=== PATIENT | male | born 1950 | race African-American/Black ===

== ENCOUNTER 2017-01-27 11:08 | Emergency (ER) | payer SELFPAY ==
[2017-01-27 11:43] VITALS: TEMP 97.8; BMI 28.5
--- NOTE | 2017-01-27 12:54 | PDOC ---
History of Present Illness <Saulo Osborne - Last Filed: 01/27/17 13:21> - History of Present Illness Initial Comments: 01/27/17 12:53 Mr. Kerr is a 66 year old male with a significant past medical history of recent ER visit for left leg injury who presents to the emergency department following 2 episodes of painless dark blood in his stool. He says that it began last night and continued this morning. It is also on the toilet paper when he wipes. Denies any change in stool otherwise or any previous episodes. The patient denies chest pain, shortness of breath, headache and dizziness. Denies fever, chills, nausea, vomit, diarrhea and constipation. Denies dysuria, frequency, urgency and hematuria. Allergies: NKDA Past surgical history: Denies 01/27/17 13:40 <Blaise Baltazar - Last Filed: 01/27/17 15:34> - General Chief Complaint: Rectal Bleed Stated Complaint: LT LEG PAIN, SWOLLEN Time Seen by Provider: 01/27/17 12:53 Past History <Saulo Osborne - Last Filed: 01/27/17 13:21> - Past Medical History Disorders: Yes (Kidney stones) HTN: Yes - Immunization History Immunization Up to Date: Yes - Suicide/Smoking/Psychosocial Hx Smoking History: Never smoked Hx Alcohol Use: No Drug/Substance Use Hx: No Substance Use Type: None <Blaise Baltazar - Last Filed: 01/27/17 15:34> - Past Medical History Allergies/Adverse Reactions: Allergies Allergy/AdvReac Type Severity Reaction Status Date / Time No Known Allergies Allergy Verified 01/27/17 11:39 Home Medications: Ambulatory Orders Clonidine HCl [Catapres] 0.1 mg PO BID #60 tablet 11/12/15 Review of Systems - Review of Systems Comments:: 01/27/17 12:54 GENERAL/CONSTITUTIONAL: No fever or chills. No weakness. HEAD, EYES, EARS, NOSE AND THROAT: No change in vision. No ear pain or discharge. No sore throat. CARDIOVASCULAR: No chest pain or shortness of breath RESPIRATORY: No cough, wheezing, or hemoptysis. GASTROINTESTINAL: No nausea, vomiting, diarrhea or constipation. GENITOURINARY: No dysuria, frequency, or change in urination. MUSCULOSKELETAL: +Left leg pain from previous injury with swelling. No neck or back pain. SKIN: No rash NEUROLOGIC: No headache, vertigo, loss of consciousness, or change in strength/ sensation. ENDOCRINE: No increased thirst. No abnormal weight change HEMATOLOGIC/LYMPHATIC: No anemia, easy bleeding, or history of blood clots. ALLERGIC/IMMUNOLOGIC: No hives or skin allergy. <JerryrozBlaise schaefer - Last Filed: 01/27/17 15:34> *Physical Exam - Vital Signs Last Vital Signs Temp Pulse Resp BP Pulse Ox 97.8 F 76 20 150/93 100 01/27/17 11:39 01/27/17 11:39 01/27/17 11:39 01/27/17 11:39 01/27/17 11:39 <Saulo Osborne - Last Filed: 01/27/17 13:21> - Vital Signs Last Vital Signs Temp Pulse Resp BP Pulse Ox 97.8 F 76 20 150/93 100 01/27/17 11:39 01/27/17 11:39 01/27/17 11:39 01/27/17 11:39 01/27/17 11:39 - Physical Exam Comments: 01/27/17 12:54 GENERAL: Awake, alert, and fully oriented, in no acute distress HEAD: No signs of trauma, normocephalic, atraumatic EYES: PERRLA, EOMI, sclera anicteric, conjunctiva clear ENT: Auricles normal inspection, hearing grossly normal, nares patent, oropharynx clear without exudates. Moist mucosa NECK: Normal ROM, supple, no lymphadenopathy, JVD, or masses LUNGS: No distress, speaks full sentences, clear to auscultation bilaterally HEART: Regular rate and rhythm, normal S1 and S2, no murmurs, rubs or gallops, peripheral pulses normal and equal bilaterally. ABDOMEN: Soft, nontender, normoactive bowel sounds. No guarding, no rebound. No masses EXTREMITIES: +Left leg swelling with pain to palpation. Normal range of motion, no edema. No clubbing or cyanosis. NEUROLOGICAL: Cranial nerves II through XII grossly intact. Normal speech, normal gait, no focal sensorimotor deficits SKIN: Warm, Dry, normal turgor, no rashes or lesions noted. RECTAL: No hemmorhoids noted externally, internal hemmorhoid appreciated by palpation. No blood or deformities noted on exam. <Blaise Baltazar - Last Filed: 01/27/17 15:34> ED Treatment Course - LABORATORY CBC & Chemistry Diagram: 01/27/17 14:50 01/27/17 14:50 <TreysilvanoBlaise - Last Filed: 01/27/17 15:34> Medical Decision Making - Medical Decision Making 01/27/17 15:27 Patient had negative stool for occult blood and labs as below. Will d/c with instructions to follow-up outpatient w/ PCP Laboratory Results - last 24 hr 01/27/17 01/27/17 01/27/17 13:29 14:50 14:50 WBC 6.6 RBC 4.34 Hgb 12.9 Hct 39.3 MCV 90.5 MCH 29.7 MCHC 32.8 RDW 14.2 Plt Count 148 D MPV 7.8 Neutrophils % 55.6 Lymphocytes % 31.0 Monocytes % 9.0 Eosinophils % 3.9 Basophils % 0.5 Sodium 139 Potassium 4.2 Chloride 107 Carbon Dioxide 27 Anion Gap 5 L BUN 10 D Creatinine 0.8 Creat Clearance w eGFR > 60 Random Glucose 87 Calcium 9.0 Total Bilirubin 0.3 D AST 22 D ALT 28 D Alkaline Phosphatase 63 Total Protein 7.3 Albumin 4.0 Stool Occult Blood Negative <TreysilvanoBlaise - Last Filed: 01/27/17 15:34> *DC/Admit/Observation/Transfer - Attestations Physician Attestion: 01/27/17 13:22 I, Dr. Saulo Osborne, attest that this document has been prepared under my direction and personally reviewed by me in its entirety. I further attest, that it accurately reflects all work, treatment, procedures and medical decision -making performed by me. <Saulo Osborne - Last Filed: 01/27/17 13:21> <Blaise Baltazar - Last Filed: 01/27/17 15:34> Diagnosis at time of Disposition: Hemorrhoid Qualifiers: Hemorrhoid type: unspecified Qualified Code(s): K64.9 - Unspecified hemorrhoids - Discharge Dispostion Disposition: HOME - Referrals Referrals: Barrett Reid MD [Primary Care Provider] - - Patient Instructions Printed Discharge Instructions: DI for Rectal Bleeding, DI for Hemorrhoids Additional Instructions: Thank you for coming in today. Please follow-up with your provider for further care. Print Language: PANAMANIAN
--- NOTE | 2017-01-27 13:23 | PDOC ---
Attending Attestation - Resident Resident Name: Blaise Baltazar - ED Attending Attestation I have performed the following: I have examined & evaluated the patient, The case was reviewed & discussed with the resident, I agree w/resident's findings & plan, Exceptions are as noted - HPI HPI: 01/27/17 13:22 rectal bleeding - Physicial Exam PE: 01/27/17 13:23 no hemorrage at present VSS - Medical Decision Making 01/27/17 13:[address] Baltazar's Assessment and Plan
[2017-01-27 14:59] LABS: BASOPHIL 0.5 % (0-2.0); EOSINOPHIL 3.9 % (0-4.5); MCH 29.7 pg (25.7-33.7); MCHC 32.8 g/dl (32.0-35.9); MEAN CELL VOLUME 90.5 fl (80-96); MEAN PLT VOLUME 7.8 fl (7.5-11.1); NEUTROPHILS 55.6 % (42.8-82.8); PLATELET COUNT 148 K/MM3 (134-434); RDW 14.2 % (11.9-15.9); WHITE BLOOD COUNT 6.6 K/mm3 (4.0-10.0)
[2017-01-27 15:24] LABS: ANION GAP 5 (8-16); BILIRUBIN,TOTAL 0.3 mg/dL (0.2-1.0); CO2 27 mmol/L (21-32); CREATININE 0.8 mg/dL (0.7-1.3); GLUCOSE,RANDOM 87 mg/dL (74-106); SGOT/AST 22 U/L (15-37); SGPT/ALT 28 U/L (12-78); TOT PROT 7.3 g/dl (6.4-8.2)
[2017-01-27 15:25] LABS: ALK PHOS 63 U/L (45-117)
[2017-01-27 16:14] VITALS: BP 188/109; PULSE 72
== END 2017-01-27 16:16 | disposition home or self-care (01) ==
LOC: JER 11:08
DX: K64.9 Unspecified hemorrhoids (principal)
CPT/HCPCS: 36415; 80053; 82272; 85025; 99282-25

== ENCOUNTER 2017-01-29 09:43 | Inpatient (IN) | payer OTHER ==
[2017-01-29 09:48] VITALS: BMI 28.5
--- NOTE | 2017-01-29 10:16 | PDOC ---
History of Present Illness - General History Source: Patient Exam Limitations: No Limitations - History of Present Illness Initial Comments: 01/29/17 12:19 The patient is a 66 year old male with a significant PMH of HTN and recent ER visit for rectal bleeding who presents to the emergency department with LLE swelling beginning approximately 4 days ago. He also reports 2 days of associated weakness and reduced appetite. The patient reports twisting his ankle 6 months ago at work but continuing to work for 2 months after.The patient has noticed LLE swelling in the past but notes that it has gotten much worse within the past 4 days and encompasses his entire leg. The patient frequently visits Dr. Lutz from podiatry for treatment, and was told by him to visit the ED given his worsening pain and edema over the last 4 days. The patient denies chest pain, shortness of breath, headache and dizziness. Denies fever, chills, nausea, vomit, diarrhea and constipation. Denies dysuria, frequency, urgency and hematuria. Allergies: NKA Social history: No reported cigarette, alcohol, or drug use. PCP: Dr. Reid Retail Account Specialist: Dr. Lutz (Referred pt. to ED) <Manjinder Hahn - Last Filed: 01/29/17 14:28> <Kourtney Rico - Last Filed: 01/29/17 15:26> - General Chief Complaint: Edema Stated Complaint: LEG PAIN Time Seen by Provider: 01/29/17 10:15 Past History <Manjinder Hahn - Last Filed: 01/29/17 14:28> - Past Medical History Disorders: Yes (Kidney stones) HTN: Yes - Immunization History Immunization Up to Date: Yes - Suicide/Smoking/Psychosocial Hx Smoking History: Never smoked Hx Alcohol Use: No Drug/Substance Use Hx: No Substance Use Type: None <Kourtney Rico - Last Filed: 01/29/17 15:26> - Past Medical History Allergies/Adverse Reactions: Allergies Allergy/AdvReac Type Severity Reaction Status Date / Time No Known Allergies Allergy Verified 01/29/17 09:48 Home Medications: Ambulatory Orders Clonidine HCl [Catapres] 0.1 mg PO BID #60 tablet 11/12/15 Review of Systems - Review of Systems Able to Perform ROS?: Yes Comments:: 01/29/17 12:19 GENERAL/CONSTITUTIONAL: (+) Mild weakness. No fever or chills. HEAD, EYES, EARS, NOSE AND THROAT: No change in vision. No ear pain or discharge. No sore throat. CARDIOVASCULAR: No chest pain or shortness of breath. RESPIRATORY: No cough, wheezing, or hemoptysis. GASTROINTESTINAL: (+) Reduced appetite. No nausea, vomiting, diarrhea or constipation. GENITOURINARY: No dysuria, frequency, or change in urination. MUSCULOSKELETAL: (+) LLE swelling. No joint pain. No neck or back pain. SKIN: No rash NEUROLOGIC: No headache, vertigo, loss of consciousness, or change in strength/ sensation. ENDOCRINE: No increased thirst. No abnormal weight change. HEMATOLOGIC/LYMPHATIC: No anemia, easy bleeding, or history of blood clots. ALLERGIC/IMMUNOLOGIC: No hives or skin allergy. <Manjinder Hahn - Last Filed: 01/29/17 14:28> *Physical Exam - Vital Signs Last Vital Signs Temp Pulse Resp BP Pulse Ox 98.5 F 105 H 20 144/104 100 01/29/17 09:44 01/29/17 09:44 01/29/17 09:44 01/29/17 09:44 01/29/17 09:44 - Physical Exam Comments: 01/29/17 12:19 GENERAL: Awake, alert, and fully oriented, in no acute distress HEAD: No signs of trauma EYES: PERRLA, EOMI, sclera anicteric, conjunctiva clear ENT: Auricles normal inspection, hearing grossly normal, nares patent, oropharynx clear without exudates. Moist mucosa NECK: Normal ROM, supple, no lymphadenopathy, JVD, or masses LUNGS: Breath sounds equal, clear to auscultation bilaterally. No wheezes, and no crackles HEART: Regular rate and rhythm, normal S1 and S2, no murmurs, rubs or gallops ABDOMEN: Soft, nontender, normoactive bowel sounds. No guarding, no rebound. No masses EXTREMITIES: (+) LLE edema and erythema. Normal range of motion. No clubbing or cyanosis. No cords or tenderness BACK: No midline spinal tenderness in cervical/thoracic/lumbar region NEUROLOGICAL: Normal speech, cranial nerves intact, negative pronator drift, 5/ 5 strength in all 4 extremities, normal sensation to light touch in all 4 extremities, normal cerebellar exam, normal gait, normal reflexes and tone. SKIN: Warm, Dry, normal turgor, no rashes or lesions noted. <Manjinder Hahn - Last Filed: 01/29/17 14:28> - Vital Signs Last Vital Signs Temp Pulse Resp BP Pulse Ox 98.5 F 105 H 20 144/104 100 01/29/17 09:44 01/29/17 09:44 01/29/17 09:44 01/29/17 09:44 01/29/17 09:44 <Kourtney Rico - Last Filed: 01/29/17 15:26> ED Treatment Course - LABORATORY CBC & Chemistry Diagram: 01/29/17 12:55 01/29/17 12:55 - RADIOLOGY Radiograph Interpretation: 01/29/17 14:28 Exam: Chest XR Interpreted by Dr. Goel Impression: No acute disease. Exam: Duplex Scan of lower extremity arteries Interpreted by Dr. Goel Impression: Normal duplex arterial study of the left lower extremity with no evidence of occlusions or hemodynamically significant stenoses. <Manjinder Hahn - Last Filed: 01/29/17 14:28> - LABORATORY CBC & Chemistry Diagram: 01/29/17 12:55 01/29/17 12:55 <Kourtney Rico - Last Filed: 01/29/17 15:26> Medical Decision Making - Medical Decision Making 01/29/17 12:11 66-year-old male history of hypertension and ankle injury 6 months ago presents with progressive left lower extremity edema, erythema and pain. The patient also reports anorexia and generalized weakness. Exam with edema to the entire left lower extremity with erythema about the calf and tenderness to palpation throughout. Concern for DVT with superimposed cellulitis. Plan: -labs -US arterial and venous -reassess 01/29/17 14:16 LLE venous US with large DVT. Dr. Juarez on vacation, pt admitted to medicine for further management. CTA pending. Case discussed in detail with admitting physician Dr. Chand including history, physical exam and ancillary studies. Admitting physician has assumed care for the patient, will follow all pending diagnostics and will complete the evaluation and treatment. <Kourtney Rico - Last Filed: 01/29/17 15:26> *DC/Admit/Observation/Transfer - Attestations Scribe Attestion: 01/29/17 11:05 Documentation prepared by Manjinder Hahn, acting as medical billing coder for Kourtney Rico MD. <Manjinder Hahn - Last Filed: 01/29/17 14:28> - Discharge Dispostion Admit: Yes - Attestations Physician Attestion: 01/29/17 14:24 I, Dr. Kourtney Rico MD, attest that this document has been prepared under my direction and personally reviewed by me in its entirety. I further attest, that it accurately reflects all work, treatment, procedures and medical decision -making performed by me. <Kourtney Rico - Last Filed: 01/29/17 15:26> Diagnosis at time of Disposition: DVT (deep venous thrombosis) - Discharge Dispostion Condition at time of disposition: Stable
[2017-01-29 13:04] LABS: BASOPHIL 0.8 % (0-2.0); EOSINOPHIL 4.2 % (0-4.5); MCH 29.9 pg (25.7-33.7); MEAN CELL VOLUME 90.5 fl (80-96); NEUTROPHILS 56.5 % (42.8-82.8); PLATELET COUNT 150 K/MM3 (134-434); RDW 14.2 % (11.9-15.9); WHITE BLOOD COUNT 6.3 K/mm3 (4.0-10.0)
[2017-01-29 13:29] LABS: ALBUMIN 3.9 g/dl (3.4-5.0); ALK PHOS 67 U/L (45-117); ANION GAP 8 (8-16); BILIRUBIN,TOTAL 0.6 mg/dL (0.2-1.0); CALCIUM 8.9 mg/dL (8.5-10.1); CO2 27 mmol/L (21-32); CREATININE 0.9 mg/dL (0.7-1.3); GLUCOSE,RANDOM 67 mg/dL (74-106); MAGNESIUM 2.2 mg/dL (1.8-2.4); SGOT/AST 21 U/L (15-37); SGPT/ALT 24 U/L (12-78); TOT PROT 7.2 g/dl (6.4-8.2)
--- NOTE | 2017-01-29 17:24 | PN ---
Teaching Attending Note Name of Resident: Pop Buckner ATTENDING PHYSICIAN STATEMENT I saw and evaluated the patient. I reviewed the resident's note and discussed the case with the resident. I agree with the resident's findings and plan as documented. SUBJECTIVE: Patient is c/o having pain and increase te size of right lower extremity OBJECTIVE: Vital Signs Temperature 98.5 F 01/29/17 09:44 Pulse Rate 105 H 01/29/17 09:44 Respiratory Rate 20 01/29/17 09:44 Blood Pressure 144/104 01/29/17 09:44 O2 Sat by Pulse Oximetry (%) 100 01/29/17 09:44 CBCD WBC 6.3 K/mm3 (4.0-10.0) 01/29/17 12:55 RBC 4.38 M/mm3 (4.00-5.60) 01/29/17 12:55 Hgb 13.1 GM/dL (11.7-16.9) 01/29/17 12:55 Hct 39.7 % (35.4-49) 01/29/17 12:55 MCV 90.5 fl (80-96) 01/29/17 12:55 MCHC 33.0 g/dl (32.0-35.9) 01/29/17 12:55 RDW 14.2 % (11.9-15.9) 01/29/17 12:55 Plt Count 150 K/MM3 (134-434) 01/29/17 12:55 MPV 8.0 fl (7.5-11.1) 01/29/17 12:55 CMP Sodium 139 mmol/L (136-145) 01/29/17 12:55 Potassium 4.1 mmol/L (3.5-5.1) 01/29/17 12:55 Chloride 104 mmol/L (98-107) 01/29/17 12:55 Carbon Dioxide 27 mmol/L (21-32) 01/29/17 12:55 Anion Gap 8 (8-16) 01/29/17 12:55 BUN 11 mg/dL (7-18) 01/29/17 12:55 Creatinine 0.9 mg/dL (0.7-1.3) 01/29/17 12:55 Creat Clearance w eGFR > 60 (>60) 01/29/17 12:55 Random Glucose 67 mg/dL (74-106) L D 01/29/17 12:55 Calcium 8.9 mg/dL (8.5-10.1) 01/29/17 12:55 Total Bilirubin 0.6 mg/dL (0.2-1.0) D 01/29/17 12:55 AST 21 U/L (15-37) 01/29/17 12:55 ALT 24 U/L (12-78) 01/29/17 12:55 Alkaline Phosphatase 67 U/L (45-117) 01/29/17 12:55 Total Protein 7.2 g/dl (6.4-8.2) 01/29/17 12:55 Albumin 3.9 g/dl (3.4-5.0) 01/29/17 12:55 Current Medications Generic Name Dose Route Start Last Admin Trade Name Freq PRN Reason Stop Dose Admin Enoxaparin Sodium 90 mg 01/29/17 22:00 Lovenox - SQ BID STEPHAN Home Medications Medication Instructions Recorded Clonidine HCl [Catapres] 0.1 mg PO BID #60 tablet 11/12/15 PE: CVs: Tachcardia mild, positive for S1S2 RLE: 4x larger than LLL rest of PE per resident' notes ASSESSMENT AND PLAN: Patient is a 66 year old male with a past medical history of hypertension, presents to the emergency room with c/o increased left lower extremity swelling for the past five days. # Acute extensive DVT of RLE on Lovenox 90mg bid for now, IR for consult for possible thrombectomy in am and IVC filter prior to thrombectomy # Acute PE on Lovenox continue for now DVT Px: Lovenox
--- NOTE | 2017-01-29 18:16 | PN ---
Physical Exam: SUBJECTIVE: Patient seen and examined OBJECTIVE: Vital Signs Period Temp Pulse Resp BP Sys/Luna Pulse Ox Last 24 Hr 98.5 F 86 18 150/90 98 GENERAL: The patient is awake, alert, and fully oriented, in no acute distress. HEAD: Normal with no signs of trauma. EYES: PERRL, extraocular movements intact, sclera anicteric, conjunctiva clear. No ptosis. ENT: Ears normal, nares patent, oropharynx clear without exudates, moist mucous membranes. NECK: Trachea midline, full range of motion, supple. LUNGS: Breath sounds equal, clear to auscultation bilaterally, no wheezes, no crackles, no accessory muscle use. HEART: Regular rate and rhythm, S1, S2 without murmur, rub or gallop. ABDOMEN: Soft, nontender, nondistended, normoactive bowel sounds, no guarding, no rebound, no hepatosplenomegaly, no masses. EXTREMITIES: 2+ pulses, warm, well-perfused, no edema. NEUROLOGICAL: Cranial nerves II through XII grossly intact. Normal speech, gait not observed. PSYCH: Normal mood, normal affect. SKIN: Warm, dry, normal turgor, no rashes or lesions noted Active Medications Generic Name Dose Route Start Last Admin Trade Name Freq PRN Reason Stop Dose Admin Enoxaparin Sodium 90 mg 01/29/17 22:00 Lovenox - SQ BID [facility] ASSESSMENT/PLAN:
--- NOTE | 2017-01-29 20:01 | HP ---
CHIEF COMPLAINT: LE swelling PCP: HISTORY OF PRESENT ILLNESS: 66 year old male with a past medical history of hypertension, presents to the emergency room with c/o increased left lower extremity swelling for the past five days. Swelling is accompanied with erythema and pain. Patient states that five months ago he tore ligaments in his left ankle due to and injury at work. Since then he has been less mobile due to pain. Patient denies sob, chest pain. ER course was notable for: (1)Extensive left lower extremity DVT (2)CTA showing multiple small bilateral pulmonary emboli; (3)pelvic CT showing external and common femoral vein Recent Travel: unknown PAST MEDICAL HISTORY: HTN PAST SURGICAL HISTORY: Social History: Smoking:no Alcohol:no Drugs: no Family History: Allergies No Known Allergies Allergy (Verified 01/29/17 09:48) HOME MEDICATIONS: Home Medications Medication Instructions Recorded Clonidine HCl [Catapres] 0.1 mg PO BID #60 tablet 11/12/15 REVIEW OF SYSTEMS CONSTITUTIONAL: Absent: fever, chills, diaphoresis, generalized weakness, malaise, loss of appetite, weight change HEENT: Absent: rhinorrhea, nasal congestion, throat pain, throat swelling, difficulty swallowing, mouth swelling, ear pain, eye pain, visual changes CARDIOVASCULAR: Absent: chest pain, syncope, palpitations, irregular heart rate, lightheadedness , peripheral edema RESPIRATORY: Absent: cough, shortness of breath, dyspnea with exertion, orthopnea, wheezing, stridor, hemoptysis GASTROINTESTINAL: Absent: abdominal pain, abdominal distension, nausea, vomiting, diarrhea, constipation, melena, hematochezia GENITOURINARY: Absent: dysuria, frequency, urgency, hesitancy, hematuria, flank pain, genital pain MUSCULOSKELETAL: Positive: left ankle pain Absent: myalgia, arthralgia, joint swelling, back pain, neck pain SKIN: Absent: rash, itching, pallor HEMATOLOGIC/IMMUNOLOGIC: Absent: easy bleeding, easy bruising, lymphadenopathy, frequent infections ENDOCRINE: Absent: unexplained weight gain, unexplained weight loss, heat intolerance, cold intolerance NEUROLOGIC: Absent: headache, focal weakness or paresthesias, dizziness, unsteady gait, seizure, mental status changes, bladder or bowel incontinence PSYCHIATRIC: Absent: anxiety, depression, suicidal or homicidal ideation, hallucinations. PHYSICAL EXAMINATION Vital Signs - 24 hr 01/29/17 18:00 Temperature 98.5 F Pulse Rate [ 86 Apical] Respiratory 18 Rate Blood Pressure 150/90 [Left Arm] O2 Sat by Pulse 98 Oximetry (%) GENERAL: Awake, alert, and fully oriented, in no acute distress. HEAD: Normal with no signs of trauma. EYES: Pupils equal, round and reactive to light, extraocular movements intact, sclera anicteric, conjunctiva clear. No lid lag. EARS, NOSE, THROAT: Ears normal, nares patent, oropharynx clear without exudates. Moist mucous membranes. NECK: Normal range of motion, supple without lymphadenopathy, JVD, or masses. LUNGS: Breath sounds equal, clear to auscultation bilaterally. No wheezes, and no crackles. No accessory muscle use. HEART: tachycardic and rhythm, normal S1 and S2 without murmur, rub or gallop. ABDOMEN: Soft, nontender, not distended, normoactive bowel sounds, no guarding, no rebound, no masses. No hepatomegaly or splenomegaly. MUSCULOSKELETAL: Normal range of motion at all joints. No bony deformities or tenderness. No CVA tenderness. UPPER EXTREMITIES: 2+ pulses, warm, well-perfused. No cyanosis. No clubbing. No peripheral edema. LOWER EXTREMITIES: 2+ pulses, warm, well-perfused. Extensive left lower extremity swelling extending to thigh with erythema NEUROLOGICAL: Cranial nerves II-XII intact. Normal speech. Normal gait. PSYCHIATRIC: Cooperative. Good eye contact. Appropriate mood and affect. SKIN: Warm, dry, normal turgor, no rashes or lesions noted, normal capillary refill. ASSESSMENT/PLAN: 66 year old male with hypertension presents to the ER after 5 days of LLL swelling and erythema found to have extensive DVT with multiple small bilateral PE's. #LLE DVT with small bilateral PE; -start full dose lovenox; as per weight she narendra get 90mg sq bid -consult IR #hypertension: -cont amlodipine Visit type - Emergency Visit Emergency Visit: Yes ED Registration Date: 01/29/17 Care time: The patient presented to the Emergency Department on the above date and was hospitalized for further evaluation of their emergent condition. - New Patient This patient is new to me today: Yes Date on this admission: 01/29/17 - Critical Care Critical Care patient: No
--- NOTE | 2017-01-29 20:41 | HP ---
CHIEF COMPLAINT: LLE Leg pain PCP: Patient is a 66 y with a Pmh of HTN, presented with 9/10 LLE gómez and calf pain, redness and swelling that began 5 days ago. Patient said he had ankle pain and swelling for the past 6 months since his injury at work which tore his left ankle ligaments. He said an 800 pound Copper item fell on his left foot. He has followed up multiple times regarding his ankle pain and was given Ibuprofen. He said he barely takes the Ibuprofen as it never helped. The pain progressively got worse and 5 days ago the pain spread from the ankles up to his thigh. He denies SOB, chest pain, fever, chills and cough. HISTORY OF PRESENT ILLNESS: ER course was notable for: (1)Extensive left lower extremity DVT (2)CTA showing multiple small bilateral pulmonary emboli; (3)pelvic CT showing external and common femoral vein Recent Travel: N/A PAST MEDICAL HISTORY: HTN PAST SURGICAL HISTORY: N/A Social History: Smoking:denies Alcohol: denies Drugs: denies Family History: Allergies No Known Allergies Allergy (Verified 01/29/17 09:48) HOME MEDICATIONS: Home Medications Medication Instructions Recorded Clonidine HCl [Catapres] 0.1 mg PO BID #60 tablet 11/12/15 REVIEW OF SYSTEMS CONSTITUTIONAL: Absent: fever, chills, diaphoresis, generalized weakness, malaise, loss of appetite, weight change HEENT: Absent: rhinorrhea, nasal congestion, throat pain, throat swelling, difficulty swallowing, mouth swelling, ear pain, eye pain, visual changes CARDIOVASCULAR: Absent: chest pain, syncope, palpitations, irregular heart rate, lightheadedness , peripheral edema RESPIRATORY: Absent: cough, shortness of breath, dyspnea with exertion, orthopnea, wheezing, stridor, hemoptysis GASTROINTESTINAL: Absent: abdominal pain, abdominal distension, nausea, vomiting, diarrhea, constipation, melena, hematochezia GENITOURINARY: Absent: dysuria, frequency, urgency, hesitancy, hematuria, flank pain, genital pain MUSCULOSKELETAL: Absent: myalgia, arthralgia, joint swelling, back pain, neck pain SKIN: LLE gómez redness and swelling Absent: rash, itching, pallor HEMATOLOGIC/IMMUNOLOGIC: Absent: easy bleeding, easy bruising, lymphadenopathy, frequent infections ENDOCRINE: Absent: unexplained weight gain, unexplained weight loss, heat intolerance, cold intolerance NEUROLOGIC: Absent: headache, focal weakness or paresthesias, dizziness, unsteady gait, seizure, mental status changes, bladder or bowel incontinence PSYCHIATRIC: Absent: anxiety, depression, suicidal or homicidal ideation, hallucinations. PHYSICAL EXAMINATION Vital Signs - 24 hr 01/29/17 18:00 Temperature 98.5 F Pulse Rate [ 86 Apical] Respiratory 18 Rate Blood Pressure 150/90 [Left Arm] O2 Sat by Pulse 98 Oximetry (%) GENERAL: Awake, alert, and fully oriented, in no acute distress. HEAD: Normal with no signs of trauma. EYES: Pupils equal, round and reactive to light, extraocular movements intact, sclera anicteric, conjunctiva clear. No lid lag. EARS, NOSE, THROAT: oropharynx clear without exudates. Moist mucous membranes. NECK: supple without lymphadenopathy, JVD, or masses. LUNGS: Breath sounds equal, clear to auscultation bilaterally. No wheezes, and no crackles. HEART: tachy, normal S1 and S2 without murmur, rub or gallop. ABDOMEN: Soft, nontender, not distended, normoactive bowel sounds, no guarding, no rebound, no masses. No hepatomegaly or splenomegaly. MUSCULOSKELETAL: Normal range of motion at all joints. No bony deformities or tenderness. No CVA tenderness. UPPER EXTREMITIES: 2+ pulses, warm, well-perfused. No cyanosis. No clubbing. No peripheral edema. LOWER EXTREMITIES: LLE : tenderness to palpation, Extensive swelling and erythema that extends to left thigh. 1+ pitting edema NEUROLOGICAL: Cranial nerves II-XII intact. Normal speech. Normal gait. PSYCHIATRIC: Cooperative. Good eye contact. Appropriate mood and affect. SKIN: Warm, dry, normal turgor, no rashes or lesions noted, normal capillary refill. ASSESSMENT/PLAN: 66 year old male with hypertension presents to the ER after 5 days of LLL swelling and erythema found to have extensive DVT with multiple small bilateral PE's. #LLE DVT with small B/L PE: -CTA showing multiple small bilateral pulmonary emboli -pelvic CT showing dvt involving external and common femoral vein -started Lovenox 90mg BID adjusted to weight -IR consulted -Will FU #Hypertension -continue Amlodipine 5mg FEN: -Not on any fluids -Electrolytes WNL -Regular Diet Visit type - Emergency Visit Emergency Visit: Yes ED Registration Date: 01/29/17 Care time: The patient presented to the Emergency Department on the above date and was hospitalized for further evaluation of their emergent condition. - New Patient This patient is new to me today: Yes Date on this admission: 01/30/17 - Critical Care Critical Care patient: No
[2017-01-29] MEDS: ENOXAPARIN NA (PORCINE) 100 MG/1 ML DISP.SYRIN SQ SCH (22:40)
[2017-01-30 07:15] LABS: MCH 29.9 pg (25.7-33.7); MCHC 33.2 g/dl (32.0-35.9); MEAN PLT VOLUME 7.7 fl (7.5-11.1); PLATELET COUNT 153 K/MM3 (134-434); RDW 13.7 % (11.9-15.9); WHITE BLOOD COUNT 5.9 K/mm3 (4.0-10.0)
[2017-01-30 07:24] LABS: INR 1.24 (0.82-1.09); PROTHROMBIN TIME (PATIENT) 13.7 SEC (9.98-11.88)
[2017-01-30 08:12] LABS: ANION GAP 11 (8-16); CALCIUM 8.8 mg/dL (8.5-10.1); CO2 24 mmol/L (21-32); CREATININE 0.9 mg/dL (0.7-1.3); GLUCOSE,RANDOM 80 mg/dL (74-106)
[2017-01-30] MEDS: ENOXAPARIN NA (PORCINE) 100 MG/1 ML DISP.SYRIN SQ SCH ×2 (09:32→21:49)
[2017-01-30] MEDS: amLODIPine BESYLATE 5 MG TABLET (FP) PO SCH (09:32)
[2017-01-30] MEDS ORDERED: FLU VACCINE QUAD 60 MCG/0.5 ML (MDV 17-18) IM ONE (10:00)
--- NOTE | 2017-01-30 10:44 | EKG ---
Test Reason : Blood Pressure : / mmHG Vent. Rate : 065 BPM Atrial Rate : 065 BPM P-R Int : 168 ms QRS Dur : 086 ms QT Int : 410 ms P-R-T Axes : 055 013 014 degrees QTc Int : 426 ms NORMAL SINUS RHYTHM MINIMAL VOLTAGE CRITERIA FOR LVH, MAY BE NORMAL VARIANT BORDERLINE ECG WHEN COMPARED WITH ECG OF 12-NOV-2015 14:44, NO SIGNIFICANT CHANGE WAS FOUND Confirmed by TRE URIBE, BORIS ([id number]) on 01/30/2017 10:43:48 AM Referred By: Confirmed By:BORIS TOLEDO MD
--- NOTE | 2017-01-30 12:22 | PN ---
Physical Exam: SUBJECTIVE: Patient seen and examined. No acute events overnight. He offers no new complaints today. Says the pain is almost gone and noticed a decrease in swelling. OBJECTIVE: Vital Signs Period Temp Pulse Resp BP Sys/Luna Pulse Ox Last 24 Hr 97.8 F-98.5 F 71-86 16-20 125-161/79-96 98-100 GENERAL: Awake, alert, and fully oriented, in no acute distress. HEAD: Normal with no signs of trauma. EYES: Pupils equal, round and reactive to light, extraocular movements intact, sclera anicteric, conjunctiva clear. No lid lag. EARS, NOSE, THROAT: oropharynx clear without exudates. Moist mucous membranes. NECK: supple without lymphadenopathy, JVD, or masses. LUNGS: Breath sounds equal, clear to auscultation bilaterally. No wheezes, and no crackles. HEART: tachy, normal S1 and S2 without murmur, rub or gallop. ABDOMEN: Soft, nontender, not distended, normoactive bowel sounds, no guarding, no rebound, no masses. No hepatomegaly or splenomegaly. MUSCULOSKELETAL: Normal range of motion at all joints. No bony deformities or tenderness. No CVA tenderness. UPPER EXTREMITIES: 2+ pulses, warm, well-perfused. No cyanosis. No clubbing. No peripheral edema. LOWER EXTREMITIES: LLE : tenderness to deep palpation (2/10. better than yesterday), Extensive swelling and erythema that extends to left thigh(improving ). 1+ pitting edema NEUROLOGICAL: Cranial nerves II-XII intact. Normal speech. Normal gait. PSYCHIATRIC: Cooperative. Good eye contact. Appropriate mood and affect. SKIN: Warm, dry, normal turgor, no rashes or lesions noted, normal capillary refill. Laboratory Results - last 24 hr 01/30/17 01/30/17 01/30/17 05:35 05:35 05:35 WBC 5.9 RBC 4.32 Hgb 12.9 Hct 38.9 MCV 90.0 MCH 29.9 MCHC 33.2 RDW 13.7 Plt Count 153 MPV 7.7 PT with INR 13.70 H INR 1.24 H Sodium 139 Potassium 3.9 Chloride 104 Carbon Dioxide 24 Anion Gap 11 BUN 15 D Creatinine 0.9 Random Glucose 80 Calcium 8.8 Active Medications Generic Name Dose Route Start Last Admin Trade Name Freq PRN Reason Stop Dose Admin Amlodipine Besylate 5 mg 01/30/17 10:00 01/30/17 09:32 Norvasc - PO 5 mg DAILY STEPHAN Administration Enoxaparin Sodium 90 mg 01/29/17 22:00 01/30/17 09:32 Lovenox - SQ 90 mg BID STEPHAN Administration ASSESSMENT/PLAN: 66 year old male with hypertension presents to the ER after 5 days of LLL swelling and erythema found to have extensive DVT with multiple small bilateral PE's. #LLE DVT with small B/L PE: -CTA showing multiple small bilateral pulmonary emboli -pelvic CT showing dvt involving external and common femoral vein -continue Lovenox 90mg BID adjusted to weight -IR consulted- will likely be scheduled for IVC filter and thrombectomy tomorrow. Talked to the patient about it and he agreed. -Will FU #Hypertension -continue Amlodipine 5mg FEN: -Not on any fluids -Electrolytes WNL -Regular Diet Visit type - Emergency Visit Emergency Visit: Yes ED Registration Date: 01/29/17 Care time: The patient presented to the Emergency Department on the above date and was hospitalized for further evaluation of their emergent condition. - New Patient This patient is new to me today: No - Critical Care Critical Care patient: No
--- NOTE | 2017-01-30 19:30 | PN ---
Teaching Attending Note Name of Resident: Pop Buckner ATTENDING PHYSICIAN STATEMENT I saw and evaluated the patient. I reviewed the resident's note and discussed the case with the resident. I agree with the resident's findings and plan as documented. SUBJECTIVE: Patient is very happy that the medication is helping his LLE swelling OBJECTIVE: Vital Signs Temperature 98.0 F 01/30/17 18:00 Pulse Rate 76 01/30/17 18:00 Respiratory Rate 19 01/30/17 18:00 Blood Pressure 155/101 01/30/17 18:00 O2 Sat by Pulse Oximetry (%) 100 01/30/17 09:00 CBCD WBC 5.9 K/mm3 (4.0-10.0) 01/30/17 05:35 RBC 4.32 M/mm3 (4.00-5.60) 01/30/17 05:35 Hgb 12.9 GM/dL (11.7-16.9) 01/30/17 05:35 Hct 38.9 % (35.4-49) 01/30/17 05:35 MCV 90.0 fl (80-96) 01/30/17 05:35 MCHC 33.2 g/dl (32.0-35.9) 01/30/17 05:35 RDW 13.7 % (11.9-15.9) 01/30/17 05:35 Plt Count 153 K/MM3 (134-434) 01/30/17 05:35 MPV 7.7 fl (7.5-11.1) 01/30/17 05:35 CMP Sodium 139 mmol/L (136-145) 01/30/17 05:35 Potassium 3.9 mmol/L (3.5-5.1) 01/30/17 05:35 Chloride 104 mmol/L (98-107) 01/30/17 05:35 Carbon Dioxide 24 mmol/L (21-32) 01/30/17 05:35 Anion Gap 11 (8-16) 01/30/17 05:35 BUN 15 mg/dL (7-18) D 01/30/17 05:35 Creatinine 0.9 mg/dL (0.7-1.3) 01/30/17 05:35 Creat Clearance w eGFR > 60 (>60) 01/29/17 12:55 Random Glucose 80 mg/dL (74-106) 01/30/17 05:35 Calcium 8.8 mg/dL (8.5-10.1) 01/30/17 05:35 Total Bilirubin 0.6 mg/dL (0.2-1.0) D 01/29/17 12:55 AST 21 U/L (15-37) 01/29/17 12:55 ALT 24 U/L (12-78) 01/29/17 12:55 Alkaline Phosphatase 67 U/L (45-117) 01/29/17 12:55 Total Protein 7.2 g/dl (6.4-8.2) 01/29/17 12:55 Albumin 3.9 g/dl (3.4-5.0) 01/29/17 12:55 Current Medications Generic Name Dose Route Start Last Admin Trade Name Freq PRN Reason Stop Dose Admin Amlodipine Besylate 5 mg 01/30/17 10:00 01/30/17 09:32 Norvasc - PO 5 mg DAILY STEPHAN Administration Enoxaparin Sodium 90 mg 01/29/17 22:00 01/30/17 09:32 Lovenox - SQ 90 mg BID STEPHAN Administration Home Medications Medication Instructions Recorded Amlodipine Besylate 5 mg PO ACHS 01/29/17 ASSESSMENT AND PLAN: Patient is a 66 year old male with a past medical history of hypertension, presents to the emergency room with c/o increased left lower extremity swelling for the past five days. # Acute extensive DVT of RLE on Lovenox 90mg bid for now, Patient is going to IR for thrombectomy in am and IVC filter prior to thrombectomy in am. # Acute PE on Lovenox continue for now DVT Px: Lovenox
[2017-01-31] MEDS: ENOXAPARIN NA (PORCINE) 100 MG/1 ML DISP.SYRIN SQ SCH ×2 (09:30→21:44)
[2017-01-31] MEDS: amLODIPine BESYLATE 5 MG TABLET (FP) PO SCH ×2 (09:30→16:07)
[2017-01-31] MEDS ORDERED: ALTEPLASE 2 MG VIAL IVPB ONE (11:30)
[2017-01-31] MEDS ORDERED: LABETALOL HCL 5 MG/1 ML (100MG/20 ML VIAL) IVPUSH ONE ×2 (12:07→14:14)
[2017-01-31] MEDS ORDERED: MIDAZOLAM HCL 5 MG/5 ML - 5 ML VIAL IVPUSH ONE ×3 (12:30→14:25)
--- NOTE | 2017-01-31 13:46 | CONSULT ---
Consultation: REQUESTING PROVIDER: Dr. Watson CONSULT REQUEST: Pulmonary We have been asked to medically evaluate this patient for DVT, PE. HISTORY OF PRESENT ILLNESS: 66 y/o M with PMH of HTN, who presented to ED with increased LLE swelling five days prior to admission. Pt twisted his L ankle at work 6 months ago. Ever since , he has had increased ankle pain and swelling, without much relief provided by ibuprofen. His pain worsened, spreading from his ankle into his thigh at the time of admission. At the time, pt denied hemoptysis, fever, chills, cough, or N /V. While in the ED, pt had duplex of LLE that showed extensive DVT, CTA which showed small, multiple b/l PE, CT abdomen/pelvis which showed DVT in L external iliac and common femoral vein. ECHO- couldn't rule out wall motion abnormalities. Pt was started on Lovenox 90mg BID. IR was consulted. Today, pt for IVC placement and thrombectomy, currently in progress. REVIEW OF SYSTEMS: CONSTITUTIONAL: Absent: fever, chills, diaphoresis, generalized weakness, malaise, loss of appetite, weight change HEENT: Absent: rhinorrhea, nasal congestion, throat pain, throat swelling, difficulty swallowing, mouth swelling, ear pain, eye pain, visual changes CARDIOVASCULAR: Absent: chest pain, syncope, palpitations, irregular heart rate, lightheadedness , peripheral edema RESPIRATORY: Absent: cough, shortness of breath, dyspnea with exertion, orthopnea, wheezing, stridor, hemoptysis GASTROINTESTINAL: Absent: abdominal pain, abdominal distension, nausea, vomiting, diarrhea, constipation, melena, hematochezia GENITOURINARY: Absent: dysuria, frequency, urgency, hesitancy, hematuria, flank pain, genital pain MUSCULOSKELETAL: Absent: myalgia, arthralgia, joint swelling, back pain, neck pain SKIN: Absent: rash, itching, pallor HEMATOLOGIC/IMMUNOLOGIC: Absent: easy bleeding, easy bruising, lymphadenopathy, frequent infections ENDOCRINE: Absent: unexplained weight gain, unexplained weight loss, heat intolerance, cold intolerance NEUROLOGIC: Absent: headache, focal weakness or paresthesias, dizziness, unsteady gait, seizure, mental status changes, bladder or bowel incontinence PSYCHIATRIC: Absent: anxiety, depression, suicidal or homicidal ideation, hallucinations. PHYSICAL EXAMINATION Vital Signs - 24 hr 01/30/17 01/30/1701/30/17 14:00 18:00 21:00 Temperature 98.4 F 98.0 F Pulse Rate 81 76 Pulse Rate [ Left Upper Arm] Respiratory 19 Rate Respiratory Rate [Left Upper Arm] Blood Pressure 155/97 155/101 Blood Pressure [Left Upper Arm ] O2 Sat by Pulse 100 Oximetry (%) O2 Sat by Pulse Oximetry (%) [ Left Upper Arm] 01/30/17 01/31/17 01/31/17 22:00 02:00 06:00 Temperature 98 F 98.9 F Pulse Rate 68 85 68 Pulse Rate [ Left Upper Arm] Respiratory 20 18 20 Rate Respiratory Rate [Left Upper Arm] Blood Pressure 148/98 126/82 129/94 Blood Pressure [Left Upper Arm ] O2 Sat by Pulse Oximetry (%) O2 Sat by Pulse Oximetry (%) [ Left Upper Arm] 01/31/17 01/31/17 01/31/17 09:00 10:00 10:45 Temperature 97.9 F Pulse Rate 76 69 Pulse Rate [ Left Upper Arm] Respiratory 12 18 12 Rate Respiratory Rate [Left Upper Arm] Blood Pressure 153/90 168/103 Blood Pressure [Left Upper Arm ] O2 Sat by Pulse 100 100 Oximetry (%) O2 Sat by Pulse Oximetry (%) [ Left Upper Arm] 01/31/17 01/31/17 01/31/17 10:50 11:46 12:04 Temperature Pulse Rate Pulse Rate [ 71 74 73 Left Upper Arm] Respiratory Rate Respiratory 12 12 12 Rate [Left Upper Arm] Blood Pressure Blood Pressure 167/98 182/101 185/104 [Left Upper Arm ] O2 Sat by Pulse Oximetry (%) O2 Sat by Pulse 100 100 100 Oximetry (%) [ Left Upper Arm] 01/31/17 01/31/17 01/31/17 12:17 12:19 12:34 Temperature Pulse Rate Pulse Rate [ 74 72 80 Left Upper Arm] Respiratory Rate Respiratory 12 12 12 Rate [Left Upper Arm] Blood Pressure Blood Pressure 171/105 162/101 160/100 [Left Upper Arm ] O2 Sat by Pulse Oximetry (%) O2 Sat by Pulse 100 100 100 Oximetry (%) [ Left Upper Arm] 01/31/17 01/31/17 01/31/17 12:38 12:40 12:49 Temperature Pulse Rate Pulse Rate [ 79 73 76 Left Upper Arm] Respiratory Rate Respiratory 12 12 12 Rate [Left Upper Arm] Blood Pressure Blood Pressure 150/104 149/106 145/99 [Left Upper Arm ] O2 Sat by Pulse Oximetry (%) O2 Sat by Pulse 100 100 100 Oximetry (%) [ Left Upper Arm] 01/31/17 01/31/17 01/31/17 13:07 13:14 13:24 Temperature Pulse Rate Pulse Rate [ 73 79 75 Left Upper Arm] Respiratory Rate Respiratory 12 12 12 Rate [Left Upper Arm] Blood Pressure Blood Pressure 149/99 140/91 137/93 [Left Upper Arm ] O2 Sat by Pulse Oximetry (%) O2 Sat by Pulse 100 100 100 Oximetry (%) [ Left Upper Arm] 01/31/17 13:35 Temperature Pulse Rate Pulse Rate [ 74 Left Upper Arm] Respiratory Rate Respiratory 12 Rate [Left Upper Arm] Blood Pressure Blood Pressure 152/100 [Left Upper Arm ] O2 Sat by Pulse Oximetry (%) O2 Sat by Pulse 100 Oximetry (%) [ Left Upper Arm] currently unable to assess, as pt currently in IVC filter, thrombectomy procedures in IR GENERAL: Awake, alert, and fully oriented, in no acute distress. HEAD: Normal with no signs of trauma. EYES: Pupils equal, round and reactive to light, extraocular movements intact, sclera anicteric, conjunctiva clear. No lid lag. EARS, NOSE, THROAT: Ears normal, nares patent, oropharynx clear without exudates. Moist mucous membranes. NECK: Normal range of motion, supple without lymphadenopathy, JVD, or masses. LUNGS: Breath sounds equal, clear to auscultation bilaterally. No wheezes, and no crackles. No accessory muscle use. HEART: Regular rate and rhythm, normal S1 and S2 without murmur, rub or gallop. ABDOMEN: Soft, nontender, not distended, normoactive bowel sounds, no guarding, no rebound, no masses. No hepatomegaly or splenomegaly. MUSCULOSKELETAL: Normal range of motion at all joints. No bony deformities or tenderness. No CVA tenderness. UPPER EXTREMITIES: 2+ pulses, warm, well-perfused. No cyanosis. No clubbing. Cap refill <2 seconds. No peripheral edema. LOWER EXTREMITIES: 2+ pulses, warm, well-perfused. No calf tenderness. No peripheral edema. NEUROLOGICAL: Cranial nerves II-XII intact. Normal speech. Normal gait. PSYCHIATRIC: Cooperative. Good eye contact. Appropriate mood and affect. SKIN: Warm, dry, normal turgor, no rashes or lesions noted. Active Medications Generic Name Dose Route Start Last Admin Trade Name Cam PRN Reason Stop Dose Admin Amlodipine Besylate 5 mg 01/30/17 10:00 01/31/17 09:30 Norvasc - PO Not Given DAILY [facility] Enoxaparin Sodium 90 mg 01/29/17 22:00 01/31/17 09:30 Lovenox - SQ Not Given BID [facility] ASSESSMENT/PLAN: 66 y/o M with PMH of HTN, who presented to ED with increased LLE swelling five days prior to admission. Pt being managed for extensive LLE DVT, multiple, b/l PE. #Extensive LLE DVT, multiple b/l PE -most likely provoked, from ankle injury -upon admission, pt on Lovenox 90mg BID - held today for procedures -IR consulted- pt for IVC filter and thrombectomy today (currently occurring) -recommend outpatient hypercoaguability testing Rest as per primary team. Dispo: We will continue to follow the patient. Thank you for this consultative opportunity. Visit type - Emergency Visit Emergency Visit: No - New Patient This patient is new to me today: Yes Date on this admission: 01/31/17 - Critical Care Critical Care patient: No
--- NOTE | 2017-01-31 13:51 | PN ---
Physical Exam: SUBJECTIVE: Patient seen and examined. No acute events overnight. Patient states he feels wells with no new complaints. He denies Left leg pain, dizziness , SOB, Chest pain, and weakness. OBJECTIVE: Vital Signs Period Temp Pulse Resp BP Sys/Luna Pulse Ox Last 24 Hr 97.9 F-98.9 F 68-85 12-20 126-185/82-106 100-100 GENERAL: Awake, alert, and fully oriented, in no acute distress. HEAD: Normal with no signs of trauma. EYES: Pupils equal, round and reactive to light, extraocular movements intact, sclera anicteric, conjunctiva clear. No lid lag. EARS, NOSE, THROAT: oropharynx clear without exudates. Moist mucous membranes. NECK: supple without lymphadenopathy, JVD, or masses. LUNGS: Breath sounds equal, clear to auscultation bilaterally. No wheezes, and no crackles. HEART: tachy, normal S1 and S2 without murmur, rub or gallop. ABDOMEN: Soft, nontender, not distended, normoactive bowel sounds, no guarding, no rebound, no masses. No hepatomegaly or splenomegaly. MUSCULOSKELETAL: Normal range of motion at all joints. No bony deformities or tenderness. No CVA tenderness. UPPER EXTREMITIES: 2+ pulses, warm, well-perfused. No cyanosis. No clubbing. No peripheral edema. LOWER EXTREMITIES: LLE : nontender, Swelling (improved), nonerythematous, 1+ pitting edema NEUROLOGICAL: Cranial nerves II-XII intact. Normal speech. Normal gait. PSYCHIATRIC: Cooperative. Good eye contact. Appropriate mood and affect. SKIN: Warm, dry, normal turgor, no rashes or lesions noted, normal capillary refill. Active Medications Generic Name Dose Route Start Last Admin Trade Name Freq PRN Reason Stop Dose Admin Amlodipine Besylate 5 mg 01/30/17 10:00 01/31/17 09:30 Norvasc - PO Not Given DAILY [facility] Enoxaparin Sodium 90 mg 01/29/17 22:00 01/31/17 09:30 Lovenox - SQ Not Given BID [facility] ASSESSMENT/PLAN: 66 year old male with hypertension presents to the ER after 5 days of LLL swelling and erythema found to have extensive DVT with multiple small bilateral PE's. #LLE DVT with small B/L PE: -s/p IVC filter and thrombectomy. -CTA showing multiple small bilateral pulmonary emboli -pelvic CT showing dvt involving external and common femoral vein -continue Lovenox 90mg BID adjusted to weight -Will FU #Hypertension -continue Amlodipine 5mg FEN: -Not on any fluids -Electrolytes WNL -Regular Diet Visit type - Emergency Visit Emergency Visit: Yes ED Registration Date: 01/29/17 Care time: The patient presented to the Emergency Department on the above date and was hospitalized for further evaluation of their emergent condition. - New Patient This patient is new to me today: No - Critical Care Critical Care patient: No
--- NOTE | 2017-01-31 16:13 | PN ---
Teaching Attending Note Name of Resident: Heather Lauren ATTENDING PHYSICIAN STATEMENT I saw and evaluated the patient. I reviewed the resident's note and discussed the case with the resident. I agree with the resident's findings and plan as documented. PULMONARY IMP DVT/PE LIKELY PROVOKED S/P THROMBECTOMY LLE HTN H/O ANKLE INJURY PLAN AC MONITOR H+H W/U FOR HYPERCOAGULABLE STATE OUTPATIENT DR STEVENSON Problem List - Problems (1) DVT (deep venous thrombosis) Code(s): I82.409 - ACUTE EMBOLISM AND THOMBOS UNSP DEEP VN UNSP LOWER EXTREMITY (2) Hypertension Code(s): I10 - ESSENTIAL (PRIMARY) HYPERTENSION Qualifiers: Hypertension type: essential hypertension Qualified Code(s): I10 - Essential (primary) hypertension; I10 - Essential (primary) hypertension; I10 - Essential (primary) hypertension (3) Pulmonary embolism Code(s): I26.99 - OTHER PULMONARY EMBOLISM WITHOUT ACUTE COR PULMONALE
--- NOTE | 2017-01-31 21:35 | PN ---
Teaching Attending Note Name of Resident: Pop Buckner ATTENDING PHYSICIAN STATEMENT I saw and evaluated the patient. I reviewed the resident's note and discussed the case with the resident. I agree with the resident's findings and plan as documented. SUBJECTIVE: Patient is comfortable ,feels better. OBJECTIVE: Vital Signs Temperature 98.7 F 01/31/17 18:00 Pulse Rate 84 01/31/17 18:00 Respiratory Rate 19 01/31/17 18:00 Blood Pressure 166/99 01/31/17 18:00 O2 Sat by Pulse Oximetry (%) 100 01/31/17 14:59 CBCD WBC 5.9 K/mm3 (4.0-10.0) 01/30/17 05:35 RBC 4.32 M/mm3 (4.00-5.60) 01/30/17 05:35 Hgb 12.9 GM/dL (11.7-16.9) 01/30/17 05:35 Hct 38.9 % (35.4-49) 01/30/17 05:35 MCV 90.0 fl (80-96) 01/30/17 05:35 MCHC 33.2 g/dl (32.0-35.9) 01/30/17 05:35 RDW 13.7 % (11.9-15.9) 01/30/17 05:35 Plt Count 153 K/MM3 (134-434) 01/30/17 05:35 MPV 7.7 fl (7.5-11.1) 01/30/17 05:35 CMP Sodium 139 mmol/L (136-145) 01/30/17 05:35 Potassium 3.9 mmol/L (3.5-5.1) 01/30/17 05:35 Chloride 104 mmol/L (98-107) 01/30/17 05:35 Carbon Dioxide 24 mmol/L (21-32) 01/30/17 05:35 Anion Gap 11 (8-16) 01/30/17 05:35 BUN 15 mg/dL (7-18) D 01/30/17 05:35 Creatinine 0.9 mg/dL (0.7-1.3) 01/30/17 05:35 Creat Clearance w eGFR > 60 (>60) 01/29/17 12:55 Random Glucose 80 mg/dL (74-106) 01/30/17 05:35 Calcium 8.8 mg/dL (8.5-10.1) 01/30/17 05:35 Total Bilirubin 0.6 mg/dL (0.2-1.0) D 01/29/17 12:55 AST 21 U/L (15-37) 01/29/17 12:55 ALT 24 U/L (12-78) 01/29/17 12:55 Alkaline Phosphatase 67 U/L (45-117) 01/29/17 12:55 Total Protein 7.2 g/dl (6.4-8.2) 01/29/17 12:55 Albumin 3.9 g/dl (3.4-5.0) 01/29/17 12:55 Current Medications Generic Name Dose Route Start Last Admin Trade Name Freq PRN Reason Stop Dose Admin Amlodipine Besylate 5 mg 01/30/17 10:00 01/31/17 16:07 Norvasc - PO 5 mg DAILY STEPHAN Administration Enoxaparin Sodium 90 mg 01/29/17 22:00 01/31/17 09:30 Lovenox - SQ Not Given BID STEPHAN Home Medications Medication Instructions Recorded Amlodipine Besylate 5 mg PO ACHS 01/29/17 PE: per resident's note ASSESSMENT AND PLAN: Patient is a 66 year old male with a past medical history of hypertension, presents to the emergency room with c/o increased left lower extremity swelling for the past five days. # Acute extensive DVT of RLE on Lovenox 90mg bid continue for now, Patient is s /p IR for thrombectomy and right neck IVC filter prior to thrombectomy. start briging with coumadin # Acute PE on Lovenox continue for now DVT Px: Lovenox
[2017-02-01] MEDS: amLODIPine BESYLATE 5 MG TABLET (FP) PO SCH (09:12)
[2017-02-01] MEDS: ENOXAPARIN NA (PORCINE) 100 MG/1 ML DISP.SYRIN SQ SCH ×2 (09:12→21:47)
--- NOTE | 2017-02-01 11:01 | PN ---
Progress Note (short form) - Note Progress Note: PULMONARY 135/100(STARTED ON AMLODIPINE) SUBJECTIVE IMPROVEMENT ANICTERIC CLEAR B/L LUNGFIELDS S1S2 BS+ 1-2+ EDEMA LEFT CALF LABS/MEDS/NOTES/IMAGES REVIEWED DVT/PE LIKELY PROVOKED S/P THROMBECTOMY LLE HTN ANKLE INJURY A/C H/H BP CONTROL HYPERCOAG W/U Cherry WILLIS MD
--- NOTE | 2017-02-01 21:58 | PN ---
Physical Exam: SUBJECTIVE: Patient seen and examined Patient is comfortable with no acute distress. No fever or chills, feels better the swelling. OBJECTIVE: Vital Signs Temperature 98.6 F 02/01/17 17:00 Pulse Rate 80 02/01/17 17:00 Respiratory Rate 20 02/01/17 17:00 Blood Pressure 153/90 02/01/17 17:00 O2 Sat by Pulse Oximetry (%) 99 02/01/17 09:00 GENERAL: The patient is awake, alert, and fully oriented, in no acute distress. HEAD: Normal with no signs of trauma. EYES: PERRL, extraocular movements intact, sclera anicteric, conjunctiva clear. ENT: Ears normal, oropharynx clear without exudates, moist mucous membranes. NECK: Trachea midline, full range of motion, supple. LUNGS: Breath sounds equal, clear to auscultation bilaterally, no wheezes, no crackles, no accessory muscle use. HEART: Regular rate and rhythm, S1, S2 without murmur, rub or gallop. ABDOMEN: Soft, nontender, nondistended, normoactive bowel sounds, no guarding, no rebound, no hepatosplenomegaly, no masses. EXTREMITIES: 2+ pulses, warm, well-perfused, LLE > RLE by 3. NEUROLOGICAL: Cranial nerves II through XII grossly intact. Normal speech, gait not observed. PSYCH: Normal mood, normal affect. SKIN: Warm, dry, normal turgor, no rashes or lesions noted CBCD WBC 5.9 K/mm3 (4.0-10.0) 01/30/17 05:35 RBC 4.32 M/mm3 (4.00-5.60) 01/30/17 05:35 Hgb 12.9 GM/dL (11.7-16.9) 01/30/17 05:35 Hct 38.9 % (35.4-49) 01/30/17 05:35 MCV 90.0 fl (80-96) 01/30/17 05:35 MCHC 33.2 g/dl (32.0-35.9) 01/30/17 05:35 RDW 13.7 % (11.9-15.9) 01/30/17 05:35 Plt Count 153 K/MM3 (134-434) 01/30/17 05:35 MPV 7.7 fl (7.5-11.1) 01/30/17 05:35 CMP Sodium 139 mmol/L (136-145) 01/30/17 05:35 Potassium 3.9 mmol/L (3.5-5.1) 01/30/17 05:35 Chloride 104 mmol/L (98-107) 01/30/17 05:35 Carbon Dioxide 24 mmol/L (21-32) 01/30/17 05:35 Anion Gap 11 (8-16) 01/30/17 05:35 BUN 15 mg/dL (7-18) D 01/30/17 05:35 Creatinine 0.9 mg/dL (0.7-1.3) 01/30/17 05:35 Creat Clearance w eGFR > 60 (>60) 01/29/17 12:55 Random Glucose 80 mg/dL (74-106) 01/30/17 05:35 Calcium 8.8 mg/dL (8.5-10.1) 01/30/17 05:35 Total Bilirubin 0.6 mg/dL (0.2-1.0) D 01/29/17 12:55 AST 21 U/L (15-37) 01/29/17 12:55 ALT 24 U/L (12-78) 01/29/17 12:55 Alkaline Phosphatase 67 U/L (45-117) 01/29/17 12:55 Total Protein 7.2 g/dl (6.4-8.2) 01/29/17 12:55 Albumin 3.9 g/dl (3.4-5.0) 01/29/17 12:55 Active Medications Current Medications Generic Name Dose Route Start Last Admin Trade Name Freq PRN Reason Stop Dose Admin Amlodipine Besylate 5 mg 01/30/17 10:00 02/01/17 09:12 Norvasc - PO 5 mg DAILY STEPHAN Administration Enoxaparin Sodium 90 mg 01/29/17 22:00 02/01/17 21:47 Lovenox - SQ 90 mg BID STEPHAN Administration Sodium Chloride 1,000 mls @ 100 mls/hr 02/01/17 14:30 1/2 Normal Saline IV 02/03/17 00:29 ASDIR STEPHAN Home Medications Medication Instructions Recorded RX: Amlodipine Besylate 5 mg PO ACHS 01/29/17 ASSESSMENT/PLAN: Patient is a 66 year old male with a past medical history of hypertension, presents to the emergency room with c/o increased left lower extremity swelling for the past five days. # Acute extensive DVT of RLE on Lovenox 90mg bid continue for now, Patient is s /p IR for thrombectomy and s/p IVC filter through the right side of his neck prior to thrombectomy. start bridging with coumadin starting tomorrow # Acute PE on Lovenox continue for now # HTN uncontrolled will increase the Norvase to 10mg DVT Px: Lovenox Visit type - Emergency Visit Emergency Visit: Yes ED Registration Date: 01/29/17 Care time: The patient presented to the Emergency Department on the above date and was hospitalized for further evaluation of their emergent condition. - New Patient This patient is new to me today: No - Critical Care Critical Care patient: No
[2017-02-02 07:03] LABS: BASOPHIL 0.7 % (0-2.0); EOSINOPHIL 4.7 % (0-4.5); MCHC 33.4 g/dl (32.0-35.9); MEAN CELL VOLUME 89.9 fl (80-96); MEAN PLT VOLUME 7.4 fl (7.5-11.1); NEUTROPHILS 48.8 % (42.8-82.8); PLATELET COUNT 199 K/MM3 (134-434); RDW 13.9 % (11.9-15.9); WHITE BLOOD COUNT 5.5 K/mm3 (4.0-10.0)
[2017-02-02 07:36] LABS: ALBUMIN 3.4 g/dl (3.4-5.0); ALK PHOS 57 U/L (45-117); ANION GAP 5 (8-16); BILIRUBIN,TOTAL 0.5 mg/dL (0.2-1.0); CALCIUM 8.2 mg/dL (8.5-10.1); CO2 29 mmol/L (21-32); CREATININE 0.9 mg/dL (0.7-1.3); GLUCOSE,RANDOM 91 mg/dL (74-106); MAGNESIUM 2.1 mg/dL (1.8-2.4); PHOSPHOROUS 2.8 mg/dL (2.5-4.9); SGOT/AST 23 U/L (15-37); SGPT/ALT 22 U/L (12-78); TOT PROT 6.6 g/dl (6.4-8.2)
[2017-02-02 07:47] LABS: INR 1.19 (0.82-1.09); PROTHROMBIN TIME (PATIENT) 13.1 SEC (9.98-11.88)
--- NOTE | 2017-02-02 08:43 | PN ---
Progress Note, Physician Chief Complaint: C/O Mild Pain and swelling Left LE History of Present Illness: 66 yrs old man with H/O HTN, present with Left LE extensive DVT and B/L Pulmonary Embolism, underwent IVC filter and thrombectomy , now on AC - Current Medication List Current Medications: Active Medications Amlodipine Besylate (Norvasc -) 5 mg PO DAILY [facility] Last Admin: 02/01/17 09:12 Dose: 5 mg Enoxaparin Sodium (Lovenox -) 90 mg SQ BID [facility] Last Admin: 02/01/17 21:47 Dose: 90 mg Sodium Chloride (1/2 Normal Saline) 1,000 mls @ 100 mls/hr IV ASDIR [facility] Stop: 02/03/17 00:29 - Objective Vital Signs: Vital Signs Temperature 99.3 F 02/02/17 05:02 Pulse Rate 70 02/02/17 05:02 Respiratory Rate 18 02/02/17 05:02 Blood Pressure 126/76 02/02/17 05:02 O2 Sat by Pulse Oximetry (%) 99 02/01/17 21:00 Eyes: Yes: Conjunctiva Clear, EOM Intact HENT: Yes: Atraumatic, Normocephalic Neck: Yes: Trachea Midline Cardiovascular: Yes: Regular Rate and Rhythm, S1, S2. No: Bruit, JVD, Gallop, Murmur, Rub Respiratory: Yes: Regular, CTA Bilaterally Gastrointestinal: Yes: Normal Bowel Sounds, Soft. No: Distention Musculoskeletal: No: Back Pain, Joint Stiffness Extremities: No: Amputation, Calf Tenderness Edema: Yes Edema: LLE: 1+ Neurological: Yes: WNL, Alert, Oriented ...Motor Strength: WNL, LUE, LLE, RUE Labs: CBC, BMP 02/02/17 05:25 02/02/17 05:25 INR, PTT INR 1.19 (0.82-1.09) H 02/02/17 05:25 - ....Imaging Cat Scan: Report Reviewed (CT Chest B/L PE) Problem List - Problems (1) DVT (deep venous thrombosis) Assessment/Plan: Extensive Left LE DVT on AC, today start on PO Coumadin 5 mg daily F/U INR after 2 doses cont Lovenox. Code(s): I82.409 - ACUTE EMBOLISM AND THOMBOS UNSP DEEP VN UNSP LOWER EXTREMITY (2) Pulmonary embolism Assessment/Plan: Secondary to Left LE DVT on AC , Hypercoaguable w/u as out patient. Code(s): I26.99 - OTHER PULMONARY EMBOLISM WITHOUT ACUTE COR PULMONALE (3) Hypertension Assessment/Plan: Essential HTN is well controlled cont all home meds,. Code(s): I10 - ESSENTIAL (PRIMARY) HYPERTENSION Qualifiers: Hypertension type: essential hypertension Qualified Code(s): I10 - Essential (primary) hypertension; I10 - Essential (primary) hypertension; I10 - Essential (primary) hypertension (4) Hemorrhoid Assessment/Plan: No active bleeding Code(s): K64.9 - UNSPECIFIED HEMORRHOIDS Qualifiers: Hemorrhoid type: unspecified Qualified Code(s): K64.9 - Unspecified hemorrhoids; K64.9 - Unspecified hemorrhoids
[2017-02-02] MEDS: amLODIPine BESYLATE 5 MG TABLET (FP) PO SCH (10:02)
[2017-02-02] MEDS: ENOXAPARIN NA (PORCINE) 100 MG/1 ML DISP.SYRIN SQ SCH ×2 (10:02→21:31)
[2017-02-02] MEDS: SODIUM CHLORIDE 0.45% 1,000 ML IV SCH ×2 (10:03→18:12)
--- NOTE | 2017-02-02 11:03 | PN ---
Progress Note (short form) - Note Progress Note: PULMONARY 126/76(STARTED ON AMLODIPINE) SUBJECTIVE IMPROVEMENT ANICTERIC CLEAR B/L LUNGFIELDS S1S2 BS+ 1-2+ EDEMA LEFT CALF LABS/MEDS/NOTES/IMAGES REVIEWED INR1.19 DVT/PE LIKELY PROVOKED S/P THROMBECTOMY LLE HTN ANKLE INJURY A/C H/H BP CONTROL HYPERCOAG W/U R ALBA URIBE
[2017-02-02] MEDS ORDERED: WARFARIN NA 5 MG TABLET (UD) PO SCH (18:00)
[2017-02-03 06:51] LABS: BASOPHIL 0.8 % (0-2.0); EOSINOPHIL 4.7 % (0-4.5); MCH 29.8 pg (25.7-33.7); MCHC 32.9 g/dl (32.0-35.9); MEAN CELL VOLUME 90.4 fl (80-96); MEAN PLT VOLUME 7.5 fl (7.5-11.1); NEUTROPHILS 44.7 % (42.8-82.8); PLATELET COUNT 240 K/MM3 (134-434); RDW 13.8 % (11.9-15.9); WHITE BLOOD COUNT 5.2 K/mm3 (4.0-10.0)
[2017-02-03 07:01] LABS: ANION GAP 5 (8-16); CALCIUM 8.8 mg/dL (8.5-10.1); CO2 28 mmol/L (21-32); GLUCOSE,RANDOM 84 mg/dL (74-106)
[2017-02-03] MEDS: ENOXAPARIN NA (PORCINE) 100 MG/1 ML DISP.SYRIN SQ SCH (09:13)
[2017-02-03] MEDS: amLODIPine BESYLATE 5 MG TABLET (FP) PO SCH (09:13)
[2017-02-03 09:18] LABS: INR 1.19 (0.82-1.09); PROTHROMBIN TIME (PATIENT) 13.1 SEC (9.98-11.88)
[2017-02-03 09:21] LABS: ACTIVATED PTT 32.7 SECONDS (26.9-34.4)
--- NOTE | 2017-02-03 10:20 | PN ---
Progress Note, Physician History of Present Illness: PULMONARY ALERT,DOING WELL -SOB,-CP - Current Medication List Current Medications: Active Medications Amlodipine Besylate (Norvasc -) 5 mg PO DAILY [facility] Last Admin: 02/03/17 09:13 Dose: 5 mg Enoxaparin Sodium (Lovenox -) 90 mg SQ BID [facility] Last Admin: 02/03/17 09:13 Dose: 90 mg Warfarin Sodium (Coumadin -) 5 mg PO DAILY@1800 [facility] Last Admin: 02/02/17 18:12 Dose: 5 mg - Objective Vital Signs: Vital Signs Temperature 99.4 F 02/03/17 05:39 Pulse Rate 76 02/03/17 05:39 Respiratory Rate 16 02/03/17 05:39 Blood Pressure 143/96 02/03/17 05:39 O2 Sat by Pulse Oximetry (%) 99 02/02/17 20:38 Constitutional: Yes: Well Nourished, Calm Eyes: Yes: WNL HENT: Yes: WNL Neck: Yes: WNL Cardiovascular: Yes: Regular Rate and Rhythm, S1, S2 Respiratory: Yes: CTA Bilaterally Gastrointestinal: Yes: Normal Bowel Sounds, Soft Extremities: Yes: WNL Edema: No Labs: CBC, BMP 02/03/17 06:20 02/03/17 06:20 INR, PTT INR 1.19 (0.82-1.09) H 02/03/17 08:35 Problem List - Problems (1) DVT (deep venous thrombosis) Code(s): I82.409 - ACUTE EMBOLISM AND THOMBOS UNSP DEEP VN UNSP LOWER EXTREMITY (2) Hypertension Code(s): I10 - ESSENTIAL (PRIMARY) HYPERTENSION Qualifiers: Hypertension type: essential hypertension Qualified Code(s): I10 - Essential (primary) hypertension; I10 - Essential (primary) hypertension; I10 - Essential (primary) hypertension (3) Pulmonary embolism Code(s): I26.99 - OTHER PULMONARY EMBOLISM WITHOUT ACUTE COR PULMONALE Assessment/Plan IMP DVT/PE LIKELY PROVOKED S/P THROMBECTOMY LLE HTN H/O ANKLE INJURY PLAN AC MONITOR H+H W/U FOR HYPERCOAGULABLE STATE OUTPATIENT DR STEVENSON Problem List - Problems (1) DVT (deep venous thrombosis) Code(s): I82.409 - ACUTE EMBOLISM AND THOMBOS UNSP DEEP VN UNSP LOWER EXTREMITY (2) Hypertension Code(s): I10 - ESSENTIAL (PRIMARY) HYPERTENSION Qualifiers: Hypertension type: essential hypertension Qualified Code(s): I10 - Essential (primary) hypertension; I10 - Essential (primary) hypertension; I10 - Essential (primary) hypertension (3) Pulmonary embolism Code(s): I26.99 - OTHER PULMONARY EMBOLISM WITHOUT ACUTE COR PULMONALE
[2017-02-03 13:58] VITALS: BP 151/95; PULSE 85; TEMP 98.4
--- NOTE | 2017-02-03 15:13 | DS ---
Physical Exam: SUBJECTIVE: Patient seen and examined. No acute events over night. Patient offers no new complaints. Says he feels great with no pains. OBJECTIVE: Vital Signs Period Temp Pulse Resp BP Sys/Luna Pulse Ox Last 24 Hr 98.2 F-99.6 F 76-90 16-20 143-162/93-98 99-100 PHYSICAL EXAM GENERAL: Awake, alert, and fully oriented, in no acute distress. HEAD: Normal with no signs of trauma. EYES: Pupils equal, round and reactive to light, extraocular movements intact, sclera anicteric, conjunctiva clear. No lid lag. EARS, NOSE, THROAT: oropharynx clear without exudates. Moist mucous membranes. NECK: supple without lymphadenopathy, JVD, or masses. LUNGS: Breath sounds equal, clear to auscultation bilaterally. No wheezes, and no crackles. HEART: tachy, normal S1 and S2 without murmur, rub or gallop. ABDOMEN: Soft, nontender, not distended, normoactive bowel sounds, no guarding, no rebound, no masses. No hepatomegaly or splenomegaly. MUSCULOSKELETAL: Normal range of motion at all joints. No bony deformities or tenderness. No CVA tenderness. UPPER EXTREMITIES: 2+ pulses, warm, well-perfused. No cyanosis. No clubbing. No peripheral edema. LOWER EXTREMITIES: LLE : nontender, minor swelling L>R but significantly better today, no erythema NEUROLOGICAL: Cranial nerves II-XII intact. Normal speech. Normal gait. 1+ pittin PSYCHIATRIC: Cooperative. Good eye contact. Appropriate mood and affect. SKIN: Warm, dry, normal turgor, no rashes or lesions noted, normal capillary refill. LABS Laboratory Results - last 24 hr 02/03/17 02/03/17 02/03/17 06:20 06:20 08:35 WBC 5.2 RBC 4.06 Hgb 12.1 Hct 36.7 MCV 90.4 MCH 29.8 MCHC 32.9 RDW 13.8 Plt Count 240 D MPV 7.5 Neutrophils % 44.7 Lymphocytes % 39.8 Monocytes % 10.0 Eosinophils % 4.7 H Basophils % 0.8 PT with INR 13.10 H INR 1.19 H PTT (Actin FS) 32.7 Sodium 139 Potassium 3.8 Chloride 106 Carbon Dioxide 28 Anion Gap 5 L BUN 11 D Creatinine 1.0 Random Glucose 84 Calcium 8.8 HOSPITAL COURSE: Date of Admission:01/29/17 66 year old male with hypertension presents to the ER after 5 days of LLL swelling and erythema found to have extensive LLE DVT with multiple small bilateral PE's. He was treated with Lovenox and was followed by Dr. Rizvi (Pulm team). IR was consulted and patient underwent successful IVC filter procedure and thrombectomy. Patient's hypertension was treated with Amlodipine. He is to be discharged on his home medications in addition to long-term anticoagulation therapy. He is instructed to take Eliquis 10mg BID for 7 days then 5mg BID afterwards. He will need to follow up with his PCP in 1 week and Pulmonary in 2 weeks. Date of Discharge: 02/03/17 Discharge Summary Reason For Visit: DEEP VEIN THROMBOSIS Current Active Problems DVT (deep venous thrombosis) (Acute) Pulmonary embolism (Acute) Condition: Improved - Instructions Diet, Activity, Other Instructions: Please see your primary care physician in 1 week. 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 Rizvi) in 2 weeks. Please take your medications as directed. You will be started on anti-coagulation therapy that will prevent future clots. Take Eliquis 10mg twice a day for the first 7 days then 5mg twice a day, after. If you feel short of breath of have chest pain, please go to your nearest emergency room. Referrals: Ovidio Rizvi MD [Staff Physician] - 2 Weeks Barrett Reid MD [Staff Physician] - 1 Week Disposition: HOME - Home Medications Comprehensive Discharge Medication List: Ambulatory Orders Amlodipine Besylate 5 mg PO ACHS 01/29/17 Apixaban [Eliquis -] 5 mg PO BID #40 tablet 02/03/17
--- NOTE | 2017-02-03 15:33 | PN ---
Teaching Attending Note Name of Resident: Pop Buckner ATTENDING PHYSICIAN STATEMENT I saw and evaluated the patient. I reviewed the resident's note and discussed the case with the resident. I agree with the resident's findings and plan as documented. SUBJECTIVE:states pain and swelling in legs have improved. denies CP, SOB, fever , chills, N/V/C/D OBJECTIVE: Last Vital Signs Temp Pulse Resp BP Pulse Ox 98.4 F 85 20 151/95 100 02/03/17 13:57 02/03/17 13:57 02/03/17 13:57 02/03/17 13:57 02/03/17 09:00 General NAD CV S1 S2 RRR no murmur/rub/gallop Lungs CTA B/L no wheezing/rales/rhonchi Extremities 1+ pitting edema LLE >RLE ASSESSMENT AND PLAN: 66yo M with HTN, and recent injury at work which has left him immobile for several months presented with LE edema 1. B/L PE and LLE DVT-likely provoked from immobility. s/p thrombectomy 01/31 and IVC filter placement. on hep ggt. will transition to eliquis 10mg BID x7 days then convert to 5mg BID. explained risks of blood thinner and warning signs. avoid ETOH while using blood thinner. f/u with PMD this week. hypercoagability workup as outpatient. 2. HTN- controlled. cont home management 3. d/c home.
== END 2017-02-03 16:16 | disposition home or self-care (01) | DRG 169 ==
LOC: JER 09:43 → JERBED 14:24 → OBSVTOIN 14:24 → J4W 01-30 00:45
PROVIDERS: ADMIT Internal Medicine; ATTEND Internal Medicine
PROC: 06H03DZ Insertion of Intraluminal Device into Inferior Vena Cava, Percutaneous Approach (ICD-10-PCS; principal; 2017-01-31)
PROC: 06CG3ZZ Extirpation of Matter from Left External Iliac Vein, Percutaneous Approach (ICD-10-PCS; 2017-01-31)
PROC: 06CN3ZZ Extirpation of Matter from Left Femoral Vein, Percutaneous Approach (ICD-10-PCS; 2017-01-31)
PROC: 3E03317 Introduction of Other Thrombolytic into Peripheral Vein, Percutaneous Approach (ICD-10-PCS; 2017-01-31)
PROC: B51CZZA Fluoroscopy of Left Lower Extremity Veins, Guidance (ICD-10-PCS; 2017-01-31)
DX: I82.422 Acute embolism and thrombosis of left iliac vein (principal); I26.99 Other pulmonary embolism without acute cor pulmonale; I10 Essential (primary) hypertension; S99 Other and unspecified injuries of ankle and foot; X58.XXXS Exposure to other specified factors, sequela; R63.0 Anorexia; Z68.28 Body mass index [BMI] 28.0-28.9, adult; Z87.442 Personal history of urinary calculi
CPT/HCPCS: 36415; 37187; 37191; 71010-TC; 71275-TC; 74177-TC; 76937-TC; 80048; 80053; 83735; 84100; 85025; 85027; 85610; 85730; 87040; 93005; 93010; 93306-TC; 93926-TC; 93971-TC; 99285-25; C1769; C1880; C1894; J2997

== ENCOUNTER 2017-02-10 18:42 | Emergency (ER) | payer OTHER ==
[2017-02-10 19:02] VITALS: BP 157/100; PULSE 88; TEMP 98.3; BMI 29.2
--- NOTE | 2017-02-10 19:42 | PDOC ---
History of Present Illness - General History Source: Patient Exam Limitations: No Limitations - History of Present Illness Initial Comments: 02/10/17 19:50 66 y/o M with a PMHx of HTN, recent thrombectomy s/p LLE DVT and bilateral PE () presents to the ED with palpitations and chest pain since yesterday. Patient reports the patient was constant, but resolved upon arrival to the ED. Patient reports the pain was not severe, but because of the recent surgery he became concerned. Denies fever, chills, nausea, vomiting. Denies cough, SOB. PCP: Dr. Barrett Reid <Armida Funez - Last Filed: 02/10/17 19:50> <Kinjal Palomo - Last Filed: 02/10/17 20:01> - General Chief Complaint: Chest Pain Stated Complaint: CHEST PAIN Time Seen by Provider: 02/10/17 19:20 Past History <Armida Funez - Last Filed: 02/10/17 19:50> - Past Medical History Disorders: Yes (Kidney stones) HTN: Yes - Immunization History Immunization Up to Date: Yes - Suicide/Smoking/Psychosocial Hx Smoking History: Never smoked Information on smoking cessation initiated: No Hx Alcohol Use: No Drug/Substance Use Hx: No Substance Use Type: None <Kinjal Palomo - Last Filed: 02/10/17 20:01> - Past Medical History Allergies/Adverse Reactions: Allergies Allergy/AdvReac Type Severity Reaction Status Date / Time No Known Allergies Allergy Verified 02/10/17 18:51 Home Medications: Ambulatory Orders Amlodipine Besylate 5 mg PO ACHS 01/29/17 Apixaban [Eliquis -] 5 mg PO BID #74 tablet 02/03/17 Review of Systems - Review of Systems Able to Perform ROS?: Yes Comments:: 02/10/17 19:51 GENERAL/CONSTITUTIONAL: No fever or chills. No weakness. HEAD, EYES, EARS, NOSE AND THROAT: No change in vision. No ear pain or discharge. No sore throat. CARDIOVASCULAR: (+) palpitations, chest pain. No shortness of breath. RESPIRATORY: No cough, wheezing, or hemoptysis. GASTROINTESTINAL: No nausea, vomiting, diarrhea or constipation. GENITOURINARY: No dysuria, frequency, or change in urination. MUSCULOSKELETAL: No joint or muscle swelling or pain. No neck or back pain. SKIN: No rash NEUROLOGIC: No headache, vertigo, loss of consciousness, or change in strength/ sensation. ENDOCRINE: No increased thirst. No abnormal weight change. HEMATOLOGIC/LYMPHATIC: No anemia, easy bleeding, or history of blood clots. ALLERGIC/IMMUNOLOGIC: No hives or skin allergy. <Dee DeeValorieArmida A - Last Filed: 02/10/17 19:50> *Physical Exam - Vital Signs Last Vital Signs Temp Pulse Resp BP Pulse Ox 98.3 F 88 18 157/100 100 02/10/17 18:53 02/10/17 18:53 02/10/17 18:53 02/10/17 18:53 02/10/17 18:53 - Physical Exam Comments: 02/10/17 19:51 GENERAL: Awake, alert, and fully oriented, in no acute distress HEAD: No signs of trauma EYES: PERRLA, EOMI, sclera anicteric, conjunctiva clear ENT: Auricles normal inspection, hearing grossly normal, nares patent, oropharynx clear without exudates. Moist mucosa NECK: Normal ROM, supple, no lymphadenopathy, JVD, or masses LUNGS: Breath sounds equal, clear to auscultation bilaterally. No wheezes, and no crackles HEART: Regular rate and rhythm, normal S1 and S2, no murmurs, rubs or gallops ABDOMEN: Soft, nontender, normoactive bowel sounds. No guarding, no rebound. No masses EXTREMITIES: Trace bilateral edema. Normal range of motion. No clubbing or cyanosis. No cords, erythema, or tenderness NEUROLOGICAL: Cranial nerves II through XII grossly intact. Normal speech, normal gait SKIN: Warm, Dry, normal turgor, no rashes or lesions noted. <FunezArmida A - Last Filed: 02/10/17 19:50> - Vital Signs Last Vital Signs Temp Pulse Resp BP Pulse Ox 98.3 F 88 18 157/100 100 02/10/17 18:53 02/10/17 18:53 02/10/17 18:53 02/10/17 18:53 02/10/17 18:53 <Kinjal Palomo - Last Filed: 02/10/17 20:01> ED Treatment Course - RADIOLOGY Radiology Studies Ordered: Category Date Time Status CHEST PA & LAT [RAD] Stat Radiology 02/10/17 19:39 Ordered <Kinjal Palomo - Last Filed: 02/10/17 20:01> Medical Decision Making - Medical Decision Making 02/10/17 19:57 a/p: 66yo male with palpitations and cp since yesterday at 2p -concern for recent multiple PE and dvts/filter, elaquis -will check labs, ekg, cxr, poss cta chest -concern for cp with recent PE dx 02/10/17 19:58 pt states he doesn't not want to have an IV placed. States he doesn't want an EKG. Doesn't want xray. Pt states he no longer wants evaluation. Discussed in detail need for workup. Pt agrees 02/10/17 20:[address] IV. Pt got up and walked out of the ED. Pt refused workup. Pt eloped from the ED. Pt ambulated with a steady gait. <Kinjal Palomo - Last Filed: 02/10/17 20:01> *DC/Admit/Observation/Transfer - Attestations Scribe Attestion: 02/10/17 19:51 Documentation prepared by Armida Funez, acting as medical device assembler for Kinjal Palomo DO. <Armida Funez - Last Filed: 02/10/17 19:50> - Attestations Physician Attestion: 02/10/17 20:01 I, Dr. Kinjal Palomo DO, attest that this document has been prepared under my direction and personally reviewed by me in its entirety. I further attest, that it accurately reflects all work, treatment, procedures and medical decision -making performed by me. <Kinjal Palomo - Last Filed: 02/10/17 20:01> Diagnosis at time of Disposition: Chest pain - Discharge Dispostion Disposition: ELOPED Condition at time of disposition: Unchanged/Unknown - Referrals Referrals: Barrett Reid MD [Primary Care Provider] -
--- NOTE | 2017-02-21 10:11 | EKG ---
Test Reason : Blood Pressure : / mmHG Vent. Rate : 085 BPM Atrial Rate : 085 BPM P-R Int : 168 ms QRS Dur : 086 ms QT Int : 388 ms P-R-T Axes : 057 017 021 degrees QTc Int : 461 ms NORMAL SINUS RHYTHM NORMAL ECG WHEN COMPARED WITH ECG OF 29-JAN-2017 11:47, NO SIGNIFICANT CHANGE WAS FOUND CLINICAL CORRELATION IS RECOMMENDED Confirmed by LILIANA GOMEZ MD ([id number]) on 02/11/2017 10:23:51 PM Also confirmed by LILIANA GOMEZ MD ([id number]), visual effects editor ARY ALCANTAR ([id number]) on 02/21/2017 10:10:32 AM Referred By: Confirmed By:LILIANA GOMEZ MD
== END 2017-02-10 20:19 | disposition home or self-care (01) ==
LOC: JER 18:42
DX: R07.9 Chest pain, unspecified (principal); I10 Essential (primary) hypertension
CPT/HCPCS: 93005; 93010; 99281-25

== ENCOUNTER 2018-02-10 09:43 | Emergency (ER) | payer OTHER ==
[2018-02-10 10:12] VITALS: TEMP 97.5; BMI 27.8
--- NOTE | 2018-02-10 11:02 | PDOC ---
History of Present Illness - General Chief Complaint: Pain Stated Complaint: LEFT LEG/PAIN Time Seen by Provider: 02/10/18 10:29 - History of Present Illness Initial Comments: 02/10/18 11:07 The patient is a 67 year old male with a PMH of HTN and LLE DVT ( in 2017, s/p thrombectomy) and PE (in 2017, s/p IVC filter) presents to our ED c/o 1 week h/ o LLE pain and swelling. Patient states the pain is worse with exertion and improves with rest. States pain is similar to when he had his DVT in 2017. Also notes h/o L sided calf edema yesterday that resolved today. Denies any shortness of breath, chest pain. No h/o PVD. Patient notes his worker's compensation ran out last year and he hasn't taken his Eliquis for the last 6-7 months because it costs $665/monthly. Patient denies fevers/chills, abdominal pain, nausea/vomiting, diarrhea/ constipation, numbness/tingling. NKDA Surgical: thrombectomy, IVC filter Social: denies toxic habits PMD: Dr. Barrett Reid - however patient has not been evaluated in 1+ year 2/2 to insurance changes. As per EMR patient was evaluated at our facility in 2017 for LLE swelling at which time he was diagnosed with DVT and PE. Past History - Past Medical History Allergies/Adverse Reactions: Allergies Allergy/AdvReac Type Severity Reaction Status Date / Time No Known Allergies Allergy Verified 02/10/18 10:06 Home Medications: Ambulatory Orders Amlodipine Besylate 10 mg PO DAILY 01/29/17 Apixaban [Eliquis] 5 mg PO BID 30 Days #74 tablet 02/10/18 Hydrochlorothiazide [Hctz -] 25 mg PO DAILY 02/10/18 COPD: No DVT: Yes Disorders: Yes (Kidney stones) HTN: Yes - Immunization History Immunization Up to Date: Yes - Suicide/Smoking/Psychosocial Hx Smoking History: Never smoked Hx Alcohol Use: No Drug/Substance Use Hx: No Substance Use Type: None Review of Systems - Review of Systems Constitutional: No: Chills, Fever HEENTM: No: Blurred Vision, Double Vision Respiratory: No: Cough, Shortness of Breath Cardiac (ROS): No: Chest Pain, Lightheadedness, Palpitations, Syncope ABD/GI: No: Constipated, Diarrhea, Nausea, Vomiting *Physical Exam - Vital Signs Last Vital Signs Temp Pulse Resp BP Pulse Ox 97.5 F L 88 18 127/85 99 02/10/18 10:07 02/10/18 10:07 02/10/18 10:07 02/10/18 10:07 02/10/18 10:07 - Physical Exam General Appearance: Yes: Nourished, Appropriately Dressed HEENT: positive: Normal Voice, Hearing Grossly Normal Neck: positive: Trachea midline, Supple Respiratory/Chest: positive: Lungs Clear, Normal Breath Sounds. negative: Labored Respiration, Rapid RR, Crackles, Wheezing, Dullness Cardiovascular: positive: S1, S2. negative: Edema, JVD, Murmur Vascular Pulses: Dorsalis-Pedis (R): 3+, Doralis-Pedis (L): 3+ Gastrointestinal/Abdominal: positive: Normal Bowel Sounds, Soft Musculoskeletal: negative: CVA Tenderness (R), CVA Tenderness (L) Extremity: positive: Normal Capillary Refill, Normal Inspection. negative: Swelling, Calf Tenderness, Erythema Integumentary: positive: Normal Color, Dry, Warm Neurologic: positive: Fully Oriented, Alert ED Treatment Course - LABORATORY CBC & Chemistry Diagram: 02/10/18 10:58 02/10/18 10:58 - RADIOLOGY Radiology Studies Ordered: Category Date Time Status DUPLEX VASCUL US-1 LEG [US] Stat Ultrasound 02/10/18 10:56 Ordered Medical Decision Making - Medical Decision Making 02/10/18 11:00 The patient is 67 year old male with a PMH of HTN, DVT, PE who presents to our ED c/o LLE pain worsened with exertion and swelling (resolved). 2+ DP pulses, no calf tenderness, no lower extremity swelling on PE. Will obtain RLE ultrasound to r/o DVT, as well as CMP to r/o electrolyte abnormality causing cramping also suspect possible PVD/claudication given patient's history 02/10/18 11:35 Case d/w Social Work - will refer patient to [facility] as well as [facility] office to apply from Medicaid. 02/10/18 11:50 Labs unremarkable. 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 Jeronimo - patient qualifies for 30 day Eliquis card. Will discharge home with close outpatient follow-up (appointment to be made for 48 hours w/Dr. Jeronimo) 10 mg BID x7 days --> 5 mg BID *DC/Admit/Observation/Transfer Diagnosis at time of Disposition: DVT (deep venous thrombosis) - Discharge Dispostion Disposition: HOME Condition at time of disposition: Good Decision to Admit order: No - Prescriptions Prescriptions: Apixaban [Eliquis] 5 mg PO BID 30 Days #74 tablet - Referrals Referrals: Barrett Reid MD [Primary Care Provider] - - Patient Instructions Additional Instructions: Please take the Eliquis card (not the pamphlet) to the [facility] located at [facility] at [facility]. Starting tomorrow take 10 mg twice daily through next Friday (February 18). On February 19, start taking 5 mg twice daily. An appointment was made with Dr. Scott Jeronimo on February 12, @ 10:30 a.m. at the Clinic located at [address] [place] [address]. Visit the Department of Social Security Office located at [address] [place] [address] to apply for insurance. In the future, consider [facility] for your prescriptions as they have a number of low cost prescription medication programs. Return immediately to the Emergency Department for any new/worsening/concerning symptoms including increased leg pain/swelling, chest pain, shortness of breath. - Post Discharge Activity
[2018-02-10 11:09] LABS: BASO % 0.8 % (0-2.0); HEMATOCRIT 46.4 % (35.4-49); HEMOGLOBIN 15.4 GM/dL (11.7-16.9); LYMPH % 36.3 % (8-40); MCH 29.8 pg (25.7-33.7); MCHC 33.2 g/dl (32.0-35.9); MEAN CELL VOLUME 89.9 fl (80-96); MEAN PLT VOLUME 7.4 fl (7.5-11.1); MONO % 9.8 % (3.8-10.2); NEUT % 51.1 % (42.8-82.8); PLATELET COUNT 254 K/MM3 (134-434); RBC 5.16 M/mm3 (4.00-5.60); RDW 14.8 % (11.9-15.9); WHITE BLOOD COUNT 5.3 K/mm3 (4.0-10.0)
[2018-02-10 11:26] LABS: INR 1.03 (0.83-1.09); PROTHROMBIN TIME (PATIENT) 12.1 SEC (9.7-13.0)
[2018-02-10 11:28] LABS: ACTIVATED PTT 28.5 SECONDS (25.2-36.5)
[2018-02-10 11:33] LABS: ALBUMIN 4.4 g/dl (3.4-5.0); ALK PHOS 61 U/L (45-117); ANION GAP 6 MMOL/L (8-16); BILIRUBIN,TOTAL 0.5 mg/dL (0.2-1); BLOOD UREA NITROGEN 16 mg/dL (7-18); CALCIUM 9.5 mg/dL (8.5-10.1); CHLORIDE 100 mmol/L (98-107); CO2 30 mmol/L (21-32); CREATININE 1.2 mg/dL (0.55-1.3); GLUCOSE,RANDOM 94 mg/dL (74-106); POTASSIUM 3.5 mmol/L (3.5-5.1); SGOT/AST 26 U/L (15-37); SGPT/ALT 30 U/L (13-61); SODIUM 136 mmol/L (136-145)
--- NOTE | 2018-02-10 12:27 | PDOC ---
Attending Attestation - Resident Resident Name: Tamica Wright - ED Attending Attestation I have performed the following: I have examined & evaluated the patient, The case was reviewed & discussed with the resident, I agree w/resident's findings & plan - HPI HPI: 02/10/18 12:22 67-year-old male with history of extensive left lower extremity DVT status post mechanical thrombectomy and IVC filter placement, prescribed lifelong a/c but stopped eliquis 2/2 cost now p/w intermittent L leg cramping last night, mostly when climbing steps. no discoloration/weakness/numbness, no cardiopulmonary complains at all. asx now, presents to r/o dvt. - Physicial Exam PE: 02/10/18 12:26 Vitals are within normal limits Patient is well-appearing, conversant, speaking full sentences Heart is regular, lungs are clear No edema or calf tenderness 2+ DP and TP pulses bilaterally, no joint pathology or effusion, sensation intact - Medical Decision Making 02/10/18 12:26 67-year-old male with history of left leg DVT now off anticoagulation presents with transient complaint of left calf pain, concerned about recurrent DVT. No evidence of DVT on exam, no evidence of peripheral vascular disease to suggest claudication. Labs are within normal limits Left lower extremity Doppler to rule out DVT, no evidence for PE We'll discuss anticoagulation options with patient's PCP, Dr. Reid, and arrange for prompt outpatient follow-up if above is within normal limits
[2018-02-10] MEDS ORDERED: ENOXAPARIN NA (PORCINE) 40 MG/0.4 ML DISP.SYRIN SQ ONE (12:42)
[2018-02-10] MEDS ORDERED: ENOXAPARIN NA (PORCINE) 100 MG/1 ML DISP.SYRIN SQ ONE (12:48)
[2018-02-10 15:35] VITALS: BP 132/88; PULSE 79
== END 2018-02-10 15:41 | disposition home or self-care (01) ==
LOC: JER 09:43 → JERBED 13:37 → UNDOADMOB 13:37 → JER 15:41
PROC: 3E013GC Introduction of Other Therapeutic Substance into Subcutaneous Tissue, Percutaneous Approach (ICD-10-PCS; principal; 2018-02-10)
DX: I82.412 Acute embolism and thrombosis of left femoral vein (principal); I10 Essential (primary) hypertension; Z86.718 Personal history of other venous thrombosis and embolism; Z86.711 Personal history of pulmonary embolism; Z91.14 Patient's other noncompliance with medication regimen
CPT/HCPCS: 36415; 80053; 85025; 85610; 85730; 93971-TC; 99284-25

== ENCOUNTER 2018-09-07 09:39 | Emergency (ER) | payer OTHER ==
[2018-09-07 09:51] VITALS: BP 126/74; PULSE 85; TEMP 98.5; BMI 39.0
--- NOTE | 2018-09-07 10:26 | PDOC ---
History of Present Illness - General Chief Complaint: Lightheaded Stated Complaint: DIZZINESS Time Seen by Provider: 09/07/18 10:22 - History of Present Illness Initial Comments: 09/07/18 10:26 Mr. Kerr is a 68 yo male w/ pmh of HTN, LLE DVT (2017 s/p thrombectomy), PE ( 2016/ s/p IVC filter) who presents for evaluation of 3 day history of generalized weakness. Patient reports he hasn't taken his Eliquis for these 3 days as he cannot afford it. Denies any other symptoms at this time. Denies any leg pain, chest pain, or other SOB. PMD: Dr. Barrett Reid The patient denies chest pain, shortness of breath, headache and dizziness. Denies fever, chills, nausea, vomit, diarrhea and constipation. Denies dysuria, frequency, urgency and hematuria. Past History - Past Medical History Allergies/Adverse Reactions: Allergies Allergy/AdvReac Type Severity Reaction Status Date / Time No Known Allergies Allergy Verified 09/07/18 09:47 Home Medications: Ambulatory Orders Amlodipine Besylate 10 mg PO DAILY 01/29/17 Apixaban [Eliquis] 5 mg PO BID 30 Days #74 tablet 02/10/18 Hydrochlorothiazide [Hctz -] 25 mg PO DAILY 02/10/18 COPD: No DVT: Yes Disorders: Yes (Kidney stones) HTN: Yes - Immunization History Immunization Up to Date: Yes - Suicide/Smoking/Psychosocial Hx Smoking History: Never smoked Hx Alcohol Use: No Drug/Substance Use Hx: No Substance Use Type: None Review of Systems - Review of Systems Comments:: 09/07/18 10:29 GENERAL/CONSTITUTIONAL: +Generalized weakness. No fever or chills. HEAD, EYES, EARS, NOSE AND THROAT: No change in vision. No ear pain or discharge. No sore throat. CARDIOVASCULAR: No chest pain or shortness of breath RESPIRATORY: No cough, wheezing, or hemoptysis. GASTROINTESTINAL: No nausea, vomiting, diarrhea or constipation. GENITOURINARY: No dysuria, frequency, or change in urination. MUSCULOSKELETAL: No joint or muscle swelling or pain. No neck or back pain. SKIN: No rash NEUROLOGIC: No headache, vertigo, loss of consciousness, or change in strength/ sensation. ENDOCRINE: No increased thirst. No abnormal weight change HEMATOLOGIC/LYMPHATIC: No anemia, easy bleeding, or history of blood clots. ALLERGIC/IMMUNOLOGIC: No hives or skin allergy. *Physical Exam - Vital Signs Last Vital Signs Temp Pulse Resp BP Pulse Ox 98.5 F 85 17 126/74 100 09/07/18 09:48 09/07/18 09:48 09/07/18 09:48 09/07/18 09:48 09/07/18 09:48 - Physical Exam Comments: 09/07/18 10:29 GENERAL: Awake, alert, and fully oriented, in no acute distress HEAD: No signs of trauma, normocephalic, atraumatic EYES: PERRLA, EOMI, sclera anicteric, conjunctiva clear ENT: Auricles normal inspection, hearing grossly normal, nares patent, oropharynx clear without exudates. Moist mucosa NECK: Normal ROM, supple, no lymphadenopathy, JVD, or masses LUNGS: No distress, speaks full sentences, clear to auscultation bilaterally HEART: Regular rate and rhythm, normal S1 and S2, no murmurs, rubs or gallops, peripheral pulses normal and equal bilaterally. ABDOMEN: Soft, nontender, normoactive bowel sounds. No guarding, no rebound. No masses EXTREMITIES: Normal inspection, Normal range of motion, no edema. No clubbing or cyanosis. NEUROLOGICAL: Cranial nerves II through XII grossly intact. Normal speech, normal gait, no focal sensorimotor deficits SKIN: Warm, Dry, normal turgor, no rashes or lesions noted. ED Treatment Course - LABORATORY CBC & Chemistry Diagram: 09/07/18 11:41 09/07/18 11:41 Medical Decision Making - Medical Decision Making 09/07/18 10:56 Mr. Kerr is a 68 yo male w/ pmh as described who presents for evaluation of 3 day history of "weakness" after being unable to take his eliquis given financial issues. Patient evaluation started with EKG / cbc/cmp/cardiac panel orders however patient refused blood draw at this time. 09/07/18 13:20 Patient elected to have blood drawn for further evaluation purposes. Renal labs elevated as below. Given patient's elevated BUN/CR/GFR renal consulted who suggested 2L hydration and counseling for renal protection. Patient then ok for follow-up at previously scheduled appointment Friday. Discussed with patient who agrees with this plan. 09/07/18 15:14 Patient received 2 L and reporting improvement of symptoms. No concern for acute process at this time. Discharging to home for further outpatient follow- up as discussed. Laboratory Results - last 24 hr 09/07/18 09/07/18 11:41 11:41 WBC 5.7 RBC 4.35 Hgb 13.3 Hct 39.5 MCV 90.9 MCH 30.7 MCHC 33.8 RDW 14.5 Plt Count 250 MPV 7.8 Absolute Neuts (auto) 3.1 Neutrophils % 54.5 Lymphocytes % 33.9 Monocytes % 8.2 Eosinophils % 2.5 Basophils % 0.9 Nucleated RBC % 0 Sodium 139 Potassium 4.2 Chloride 104 Carbon Dioxide 25 Anion Gap 10 BUN 35 H Creatinine 1.6 H Creat Clearance w eGFR 43.46 Random Glucose 101 Calcium 9.1 Total Bilirubin 0.5 AST 14 L ALT 21 Alkaline Phosphatase 55 Creatine Kinase 311 H Creatine Kinase Index 0.3 CK-MB (CK-2) 1.0 Troponin I < 0.02 Total Protein 7.4 Albumin 4.2 *DC/Admit/Observation/Transfer Diagnosis at time of Disposition: Weakness - Discharge Dispostion Disposition: HOME - Referrals - Patient Instructions Printed Discharge Instructions: Acute Renal Failure Additional Instructions: You were evaluated today in the ER and found to have elevated kidney function. We discussed your case with the rafter cutting machine operator who recommended hydration and further outpatient follow-up on Friday at previously scheduled appointment. Please attend scheduled appointment with primary care provider on Friday as discussed. Return to ER if any further symptoms, fever, chills, or other concerning symptoms. - Post Discharge Activity
--- NOTE | 2018-09-07 10:57 | PDOC ---
Attending Attestation - Resident Resident Name: Blaise Baltazar - ED Attending Attestation I have performed the following: I have examined & evaluated the patient, The case was reviewed & discussed with the resident, I agree w/resident's findings & plan, Exceptions are as noted - HPI HPI: 68 yo M history DVT/PE presents with 3 days of lightheadedness, diffuse weakness. He states he has not taken his eliquis in that period. He has had similar presentations in the past. He states that he is unable to afford the eliquis. He denies any focal weakness, headache, numbness, cp, SOB. He states he is just not feeling well. - Physicial Exam PE: GENERAL: Awake, alert, and fully oriented, in no acute distress HEAD: No signs of trauma EYES: PERRLA, EOMI, sclera anicteric, conjunctiva clear ENT: Auricles normal inspection, hearing grossly normal, nares patent, oropharynx clear without exudates. Moist mucosa NECK: Normal ROM, supple, no lymphadenopathy, JVD, or masses LUNGS: Breath sounds equal, clear to auscultation bilaterally. No wheezes, and no crackles HEART: Regular rate and rhythm, normal S1 and S2, no murmurs, rubs or gallops ABDOMEN: Soft, nontender, normoactive bowel sounds. No guarding, no rebound. No masses EXTREMITIES: Normal range of motion, no edema. No clubbing or cyanosis. No cords, erythema, or tenderness NEUROLOGICAL: Cranial nerves II through XII grossly intact. Normal speech, normal gait. Motor and sensation intact SKIN: Warm, Dry, normal turgor, no rashes or lesions noted. - Medical Decision Making Will send routine bloodwork to make sure there is nothing abnormal. CTH not indicated at this time, as there are no neurologic deficits.
[2018-09-07 11:54] LABS: BASO % 0.9 % (0-2.0); EOS % 2.5 % (0-4.5); HEMATOCRIT 39.5 % (35.4-49); HEMOGLOBIN 13.3 GM/dL (11.7-16.9); LYMPH % 33.9 % (8-40); MCH 30.7 pg (25.7-33.7); MCHC 33.8 g/dl (32.0-35.9); MEAN CELL VOLUME 90.9 fl (80-96); MEAN PLT VOLUME 7.8 fl (7.5-11.1); MONO % 8.2 % (3.8-10.2); NEUT % 54.5 % (42.8-82.8); PLATELET COUNT 250 K/MM3 (134-434); RBC 4.35 M/mm3 (4.00-5.60); RDW 14.5 % (11.9-15.9); WHITE BLOOD COUNT 5.7 K/mm3 (4.0-10.0)
[2018-09-07 12:29] LABS: ALBUMIN 4.2 g/dl (3.4-5.0); ALK PHOS 55 U/L (45-117); ANION GAP 10 MMOL/L (8-16); BILIRUBIN,TOTAL 0.5 mg/dL (0.2-1); BLOOD UREA NITROGEN 35 mg/dL (7-18); CALCIUM 9.1 mg/dL (8.5-10.1); CHLORIDE 104 mmol/L (98-107); CO2 25 mmol/L (21-32); CREATININE 1.6 mg/dL (0.55-1.3); GLUCOSE,RANDOM 101 mg/dL (74-106); POTASSIUM 4.2 mmol/L (3.5-5.1); SGOT/AST 14 U/L (15-37); SGPT/ALT 21 U/L (13-61); SODIUM 139 mmol/L (136-145); TOT PROT 7.4 g/dl (6.4-8.2)
[2018-09-07] MEDS ORDERED: SODIUM CHLORIDE 1,000 ML IV STA ×2 (13:19)
== END 2018-09-07 15:53 | disposition home or self-care (01) ==
LOC: JER 09:39
PROC: 3E0337Z Introduction of Electrolytic and Water Balance Substance into Peripheral Vein, Percutaneous Approach (ICD-10-PCS; principal; 2018-09-07)
DX: R53.1 Weakness (principal); I10 Essential (primary) hypertension; Z86.711 Personal history of pulmonary embolism; Z86.718 Personal history of other venous thrombosis and embolism; Z79.01 Long term (current) use of anticoagulants; Z95.828 Presence of other vascular implants and grafts; Z91.14 Patient's other noncompliance with medication regimen
CPT/HCPCS: 36415; 80053; 82550; 82553; 84484; 85025; 99281-25; J7030

== ENCOUNTER 2019-03-17 06:39 | Emergency (ER) | payer OTHER ==
[2019-03-17 07:15] VITALS: BMI 29.2
--- NOTE | 2019-03-17 07:47 | PDOC ---
Documentation entered by Bautista Haynes SCRIBE, acting as scribe for Sonia Velazquez MD. Sonia Velazquez MD: This documentation has been prepared by the Ivy tracy Xhesika, SCRIBE, under my direction and personally reviewed by me in its entirety. I confirm that the documentation accurately reflects all work, treatment, procedures, and medical decision making performed by me. History of Present Illness - General Chief Complaint: Rectal Bleed Stated Complaint: blood in stool History Source: Patient Exam Limitations: No Limitations - History of Present Illness Initial Comments: 03/17/19 07:27 The patient is a 68 year old male with a significant PMH of HTN, LLE DVT ( 2017 s/p thrombectomy), PE (2017/ s/p IVC filter) who presents to the emergency department for blood in stool since yesterday. Patient notes he has been on coumadin for DVT/PE. Patient notes he felt something funny in his anal, drank miralax and had 3 episodes of diarrhea yeasterday. However, patient notes he endorsed 2 episodes of blood in stool after drinking the miralax. Patient notes he feels dizzy sometimes, but denies any complaints currently. The patient denies chest pain, shortness of breath, headache and dizziness. Denies fever, chills, cough, nausea, vomiting. Denies dysuria, frequency, urgency and hematuria. Allergies: NKDA PCP: Dr. Barrett Reid Past History - Past Medical History Allergies/Adverse Reactions: Allergies Allergy/AdvReac Type Severity Reaction Status Date / Time No Known Allergies Allergy Verified 03/17/19 07:09 Home Medications: Ambulatory Orders Amlodipine Besylate 10 mg PO DAILY 01/29/17 Apixaban [Eliquis] 5 mg PO BID 30 Days #74 tablet 02/10/18 Hydrochlorothiazide [Hctz -] 25 mg PO DAILY 02/10/18 COPD: No DVT: Yes Disorders: Yes (Kidney stones) HTN: Yes - Immunization History Immunization Up to Date: Yes - Psycho Social/Smoking Cessation Hx Smoking History: Never smoked Information on smoking cessation initiated: No Hx Alcohol Use: No Drug/Substance Use Hx: No Substance Use Type: None Review of Systems - Review of Systems Able to Perform ROS?: Yes Comments:: 03/17/19 07:28 GENERAL/CONSTITUTIONAL: No fever or chills. No weakness. HEAD, EYES, EARS, NOSE AND THROAT: No change in vision. No ear pain or discharge. No sore throat. CARDIOVASCULAR: No chest pain or shortness of breath. RESPIRATORY: No cough, wheezing, or hemoptysis. GASTROINTESTINAL: No nausea, vomiting, diarrhea or constipation. GENITOURINARY: No dysuria, frequency, or change in urination. MUSCULOSKELETAL: No joint or muscle swelling or pain. No neck or back pain. SKIN: No rash RECTAL: +blood in stool. NEUROLOGIC: +dizziness (sometimes). No headache, vertigo, loss of consciousness , or change in strength/sensation. ENDOCRINE: No increased thirst. No abnormal weight change. HEMATOLOGIC/LYMPHATIC: No anemia, easy bleeding, or history of blood clots. ALLERGIC/IMMUNOLOGIC: No hives or skin allergy. *Physical Exam - Vital Signs Last Vital Signs Temp Pulse Resp BP Pulse Ox 98 F 85 18 103/72 97 03/17/19 07:07 03/17/19 07:07 03/17/19 07:07 03/17/19 07:07 03/17/19 07:07 - Physical Exam Comments: 03/17/19 07:44 Awake alert no acute distress lungs are clear bilaterally heart is regular without murmurs rubs or gallops abdomen is soft nontender rectal exam performed with scribe at the bedside no gross blood no palpable masses no palpable hard stool in the rectal vault stool occult obtained extremities warm and well- perfused no noted edema neurologically patient is awake alert and oriented x3 ED Treatment Course - LABORATORY CBC & Chemistry Diagram: 03/17/19 07:36 03/17/19 07:36 Medical Decision Making - Medical Decision Making 03/17/19 07:45 68-year-old male history of previous DVT PE status post IVC filter hypertension on Coumadin currently here today because he states that he felt some discomfort in his rectum a few days ago started taking a stool softener which was a drink he drank 3 times a day he did have loose stool following but when he had a stool he thought he saw some red which she was concern for blood in his stool due to the fact that he is on Coumadin he became concerned he called Dr. Mitchell Moreland but was unable to get an appointment was told to come to the emergency room. Has seen Dr. Farrell for prior GI bleed in the past also reports feeling somewhat lightheaded denies any chest pain no abdominal pain no fevers chills no other current complaints 03/17/19 09:15 Patient CBC is normal no signs of anemia stool occult is negative negative for gross blood on my rectal exam. Creatinine is 1.6 which is where it was in September of this year. Will call Dr. Yamilet Morrell to discuss follow-up patient will likely require follow-up with GI but this time is stable for discharge home his INR is subtherapeutic at 1.[address] Jordan to adjust Coumadin dosing as needed 03/17/19 09:29 d/w [place] will see pt in office. told to call to schedule an appointemnt. Discharge - Discharge Information Problems reviewed: Yes Clinical Impression/Diagnosis: Rectal discomfort Condition: Improved Disposition: HOME - Admission No - Follow up/Referral Referrals: David Guardado MD [Staff Physician] - Barrett Reid MD [Staff Physician] - - Patient Discharge Instructions Patient Printed Discharge Instructions: DI for Rectal Bleeding Additional Instructions: your stool test is negative for blood and your blood work shows no signs of anemia. your INR or coumadin level is low at 1.7. you need to follow up with Dr Reid to discuss adjustment of your coumadin. return for any bright red blood per rectum or any concerns. Print Language: HUNGARIAN - Post Discharge Activity
[2019-03-17 08:05] LABS: BASO % 0.9 % (0-2.0); EOS % 2.7 % (0-4.5); HEMATOCRIT 38.4 % (35.4-49); HEMOGLOBIN 12.9 GM/dL (11.7-16.9); LYMPH % 41.2 % (8-40); MCH 31.2 pg (25.7-33.7); MCHC 33.7 g/dl (32.0-35.9); MEAN CELL VOLUME 92.7 fl (80-96); MEAN PLT VOLUME 7.9 fl (7.5-11.1); MONO % 9.2 % (3.8-10.2); PLATELET COUNT 261 K/MM3 (134-434); RBC 4.14 M/mm3 (4.00-5.60); WHITE BLOOD COUNT 5.3 K/mm3 (4.0-10.0)
[2019-03-17 08:30] LABS: ALBUMIN 4.2 g/dl (3.4-5.0); BILIRUBIN,TOTAL 0.6 mg/dL (0.2-1); BLOOD UREA NITROGEN 28.1 mg/dL (7-18); CALCIUM 9.1 mg/dL (8.5-10.1); CREATININE 1.6 mg/dL (0.55-1.3); POTASSIUM 4.4 mmol/L (3.5-5.1); TOT PROT 7.5 g/dl (6.4-8.2)
[2019-03-17 08:33] LABS: INR 1.21 (0.83-1.09); PROTHROMBIN TIME (PATIENT) 14.3 SEC (9.7-13.0)
[2019-03-17 08:36] LABS: ACTIVATED PTT 28.3 SECONDS (25.2-36.5)
[2019-03-17 09:36] VITALS: BP 103/76; PULSE 72; TEMP 98.2
== END 2019-03-17 09:45 | disposition home or self-care (01) ==
LOC: JER 06:39
DX: K62.89 Other specified diseases of anus and rectum (principal); I10 Essential (primary) hypertension; Z79.01 Long term (current) use of anticoagulants; Z95.828 Presence of other vascular implants and grafts
CPT/HCPCS: 36415; 80053; 82272; 82550; 82553; 84484; 85025; 85610; 85730; 86850; 86900; 86901; 99282-25